=== PATIENT | female | born 1950 | race African-American/Black ===

== ENCOUNTER → 2024-05-05 14:33 | Outpatient (REF) | payer MEDICARE, BC, SELFPAY ==
--- OUTSIDE RECORDS SUMMARY | 2024-05-05 16:28 | XMS_ITS | Referral Summary ---
Author Organization [facility] [place] Address [address] [place] [id number] Care Team Providers Care Colleter Name Role Phone Anderson Alvarez MD Primary Care Provider [phone] Encounters Date Type Department Care Team Description 04/07/2024 10:00 AM DRESSAGE JUDGE Lab [facility] [address] [place] [id number] Type 2 diabetes mellitus with hyperglycemia, with long-term current use of insulin (HCC); Acquired hypothyroidism; Essential hypertension 04/06/2024 Orders Only [facility] [address] [place] [id number] Anderson Alvarez MD 04/06/2024 3:20 PM DRESSAGE JUDGE - 04/06/2024 11:59 PM DRESSAGE JUDGE Hospital Encounter [facility] Medical Office [address]ld[address] OP Lab [address] [place] [id number] Type 2 diabetes mellitus with hyperglycemia, with long-term current use of insulin (HCC) Discharge Disposition: Discharge to home or self care 04/06/2024 2:45 PM DRESSAGE JUDGE Office Visit [facility] at [address] [place] [address] Anderson Alvarez MD Type 2 diabetes mellitus with hyperglycemia, with long-term current use of insulin (HCC) (Primary Dx); Essential hypertension; Mixed hyperlipidemia; Acquired hypothyroidism from Last 3 Months Allergies Active Allergy Reactions Criticality Noted Date Comments Carvedilol Unknown 04/17/2023 Diphenhydramine Hives,Urticaria Medium 07/21/2021 Enalapril Unknown 04/17/2023 Medications insulin lispro (HumaLOG, ADMELOG) 100 unit/mL pen for injection Inject 5 Units under the skin 3 (three) times a day with meals 4.5 mL 2 Active Additional Information Patient not taking.Reported on 04/06/2024 cloNIDine (CATAPRES) 0.1 mg tablet Take 1 tablet (0.1 mg total) by mouth 3 (three) times a day Active metoprolol XL (TOPROL-XL) 50 mg extended release tablet Take 1 tablet (50 mg total) by mouth daily Active levothyroxine (SYNTHROID) 75 mcg tablet Take 1 tablet (75 mcg total) by mouth daily Active atorvastatin (LIPITOR) 80 mg tablet Take 1 tablet (80 mg total) by mouth daily Active vitamin B complex capsule Take 1 capsule by mouth daily Active losartan (COZAAR) 100 mg tablet Take 1 tablet (100 mg total) by mouth daily Active insulin glargine (LANTUS) 100 unit/mL (3 mL) pen for injection Inject 30 Units under the skin nightly Active amLODIPine (NORVASC) 10 mg tablet Take 1 tablet (10 mg total) by mouth daily 3 Active aspirin 81 mg chewable tablet Take 1 tablet (81 mg total) by mouth daily Active cholecalciferol (VITAMIN D-3) 94552 unit capsule Take 1 capsule (10,000 Units total) by mouth once a week Active nystatin ointment Apply topically 2 (two) times a day 2 Active HumaLOG 200 unit/mL (3 mL) pen for injection 3 Active ibuprofen (ADVIL,MOTRIN) 600 mg tablet Take 1 tablet (600 mg total) by mouth every 6 (six) hours as needed for pain 20 tablet 4 Active Jardiance 25 mg tablet TAKE 1 TABLET BY MOUTH DAILY 90 tablet 3 4 Active insulin syringe-needle U-100 (BD Insulin Syringe Ultra-Fine) 0.3 mL 31 gauge x 5/16 syringe Active Active Problems Problem Noted Date Diagnosed Date Hypothyroidism 03/05/2018 Assessment & Plan (01/16/2023 10:49 AM DRESSAGE JUDGE): Check labs. On levothyroxine 75 mcg daily. Electrocardiogram abnormal 03/04/2018 Essential hypertension 02/13/2018 Assessment & Plan (01/16/2023 10:49 AM DRESSAGE JUDGE): Has white coat hypertension. BP has been labile at home but for most part <140/90. Continue current dose of metoprolol XL, losartan, clonidine, and norvasc. Hyperlipidemia 02/13/2018 Type 2 diabetes mellitus 01/24/2003 Overview (04/17/2023): HgbA1C 9.5 Assessment & Plan (01/16/2023 10:48 AM DRESSAGE JUDGE): Update labs. On lantus 30 units nightly with humalog sliding scale. Immunizations Immunization Administration Dates Next Due Influenza, Trivalent, High D ose, Split, Preservative Free, Intramuscular 11/10/2021,12/09/2020 Influenza, Unspecified 01/16/2023(Deferr ed: Patient Refused),12/14/2020(Deferred: Patient Refused) Pneumococcal Conjugate Pcv20 11/10/2021 Tdap 04/15/2023(Deferred: Patient Refused - states does not want it) Social History Tobacco Use Types Packs/Day Years Used Date Smoking Tobacco: Never Smokeless Tobacco: Never Tobacco Cessation:Counseling Given: Not Answered AUDIT-C Answer Date Recorded Q1: How often do you have a drink containing alcohol? Never 04/06/2024 Q2: How many drinks containi ng alcohol do you have on a typical day when you are drinking? Patient does not drink Frequency of Binge Drinking Not on file 03/28 PHQ-2 Answer Date Recorded PHQ-2 Total Score (If total score is 3 or more points, staff should administer the PHQ-9) 0 10/02/2023 Personal Safety Answer Date Recorded Have you ever been in or are you currently in a harmful physical or emotional relationship or is someone making you feel afraid or unsafe? Denies 04/15/2023 Comments No Sex and Gender Information Value Date Recorded Sex Assigned at Not on file Legal Sex Female 10:00 PM DRESSAGE JUDGE Gender Identity Not on file Sexual Orientation Not on file Last Filed Vital Signs Vital Sign Reading Time Taken Comments Blood Pressure 160/90 04/06/2024 3:53 PM DRESSAGE JUDGE Pulse 64 04/06/2024 3:02 PM DRESSAGE JUDGE Temperature 37.1 C (98.7 F) 04/06/2024 3:02 PM DRESSAGE JUDGE Respiratory Rate 18 04/06/2024 3:02 PM DRESSAGE JUDGE Oxygen Saturation 97% 04/06/2024 3:02 PM DRESSAGE JUDGE Inhaled Oxygen Concentration - - Weight 65.7 kg (144 lb 12.8 oz) 04/06/2024 3:02 PM DRESSAGE JUDGE Height 162.6 cm (5' 4 ) 04/06/2024 3:02 PM DRESSAGE JUDGE Body Mass Index 24.85 04/06/2024 3:02 PM DRESSAGE JUDGE Plan of Treatment Not on file Procedures Procedure Name Priority Date/Time Associated Diagnosis Comments T3, FREE Routine 04/07/2024 10:10 AM DRESSAGE JUDGE EGFR Routine 04/07/2024 10:10 AM DRESSAGE JUDGE Type 2 diabetes mellitus with hyperglycemia, with long-term current use of insulin ([facility]) Essential hypertension T4, FREE Routine 04/07/2024 10:10 AM DRESSAGE JUDGE Acquired hypothyroidism DIFFERENTIAL AUTO Routine 04/07/2024 10:10 AM DRESSAGE JUDGE Essential hypertension CBC WITH AUTO DIFFERENTIAL Routine 04/07/2024 10:10 AM DRESSAGE JUDGE Essential hypertension COMPREHENSIVE METABOLIC PANEL Routine 04/07/2024 10:10 AM DRESSAGE JUDGE Type 2 diabetes mellitus with hyperglycemia, with long-term current use of insulin ([facility]) Essential hypertension LIPID PANEL Routine 04/07/2024 10:10 AM DRESSAGE JUDGE Essential hypertension THYROID FUNCTION CASCADE Routine 04/07/2024 10:10 AM DRESSAGE JUDGE Acquired hypothyroidism HEMOGLOBIN A1C Routine 04/07/2024 10:10 AM DRESSAGE JUDGE Type 2 diabetes mellitus with hyperglycemia, with long-term current use of insulin ([facility]) ALBUMIN CREATININE RATIO, URINE Routine 04/06/2024 3:24 PM DRESSAGE JUDGE Type 2 diabetes mellitus with hyperglycemia, with long-term current use of insulin (HCC) SCREENING MAMMOGRAM BILATERAL W JERRY Schedule Routine, Read Routine (OP Routine) 01/30/2024 2:10 PM DRESSAGE JUDGE Screening mammogram, encounter for DEXA AXIAL SKELETON BONE DENSITY 1 OR MORE SITES Schedule Routine, Read Routine (OP Routine) 10/16/2023 7:32 AM CDT Post-menopausal STOOL DNA COLOGUARD Routine 11/03/2021 11:48 AM CDT Screening for colon cancer from Last 3 Months or Most Recently Relevant to Health Maintenance Results * eGFR (04/07/2024 10:10 AM DRESSAGE JUDGE) eGFR >90 >=60 mL/min/1. 73 m2 Comment: Interpretive Data Reference Interval Normal >/= 90 mL/min/1.73m2 Mildly decreased* 60 - 89 mL/min/1.73m2 Mildly to moderately decreased 45 - 59 mL/min/1.73m2 Moderately to severely decreased 30 - 44 mL/min/1.73m2 Severely decreased 15 - 29 mL/min/1.73m2 Kidney Failure < 15 mL/min/1.73m2 *Relative to young adult level Estimated glomerular filtration rate is determined by the 2020 CKD-EPI equation recommended by the National Kidney Foundation (A Unifying Approach to GFR Estimation: Recommendations of the NKF-ASK Task Force on Reassessing the Inclusion of Race in Diagnosing Kidney Disease, JASN 2020). The CKD-EPI equation should not be used for patients with unstable renal function and has not been validated in children and those over 70. Current interpretive data was last reviewed 2020. Blood 04/07/2024 10:1 0 AM DRESSAGE JUDGE 04/07/2024 11:06 AM DRESSAGE JUDGE us Anderson Alvarez MD LAB BLOOD ORDERABLES Final Re sult [facility] [address] [facility] Department [place] [address] * Differential, auto (04/07/2024 10:10 AM DRESSAGE JUDGE) Pathologist [facility] Neutrophil abs 3.8 1.5 - 6.5 K/cumm Imm gran abs 0.0 0.0 - 0.1 K/cumm [facility] Lymphocyte abs 1.7 0.8 - 3.3 K/cumm [facility] Monocyte abs 0.5 0.2 - 0.8 K/cumm [facility] Eosinophil abs 0.1 0.0 - 0.5 K/cumm [facility] Basophil abs 0.0 0.0 - 0.1 K/cumm [facility] Neutrophil pct 63.1 % [facility] Comment: Interpretive Data Percent cell count reference ranges are not reported, since discordance with absolute values may lead to misinterpretation of CBC data. Current Interpretive Data was last revised on 2017. Imm gran pct 0.2 % [facility] Comment: Interpretive Data Percent cell count reference ranges are not reported, since discordance with absolute values may lead to misinterpretation of CBC data. Current Interpretive Data was last revised on 2017. Lymphocyte pct 27.7 % [facility] Comment: Interpretive Data Percent cell count reference ranges are not reported, since discordance with absolute values may lead to misinterpretation of CBC data. Current Interpretive Data was last revised on 2017. Monocyte pct 7.4 % [facility] Comment: Interpretive Data Percent cell count reference ranges are not reported, since discordance with absolute values may lead to misinterpretation of CBC data. Current Interpretive Data was last revised on 2017. Eosinophil pct 1.3 % [facility] Comment: Interpretive Data Percent cell count reference ranges are not reported, since discordance with absolute values may lead to misinterpretation of CBC data. Current Interpretive Data was last revised on 2017. Basophil pct 0.3 % [facility] Comment: Interpretive Data Percent cell count reference ranges are not reported, since discordance with absolute values may lead to misinterpretation of CBC data. Current Interpretive Data was last revised on 2017. Blood 04/07/2024 10:1 0 AM DRESSAGE JUDGE 04/07/2024 11:06 AM DRESSAGE JUDGE Anderson Alvarez MD LAB BLOOD ORDERABLES Final Re sult Performing Organization Address City/[facility] Co de Phone Number [address] [place] [address] * (ABNORMAL) Thyroid Function [place] (04/07/2024 10:10 AM DRESSAGE JUDGE) TSH 0.07(L) 0.30 - 4.20 mcIUnit/mL Blood 04/07/2024 10:1 0 AM DRESSAGE JUDGE 04/07/2024 11:06 AM DRESSAGE JUDGE Anderson Alvarez MD LAB BLOOD ORDERABLES Final Re sult Performing Organization Address [facility] de Phone Number [address] [address] * CBC with auto differential (04/07/2024 10:10 AM DRESSAGE JUDGE) [facility] WBC 6.1 3.8 - 9.9 K/cumm Hgb 14.4 11.9 - 15.5 g/dL [facility] Hct 44.3 35.6 - 45.5 % [facility] Plt 321 150 - 400 K/cumm [facility] MPV 11.7 9.1 - 12.3 fL [facility] RBC 4.79 3.90 - 5.20 M/cumm [facility] MCV 92.5 81.3 - 96.4 fL [facility] MCH 30.1 27.1 - 33.3 pg [facility] MCHC 32.5 32.3 - 35.7 g/dL [facility] RDW CV 13.3 11.1 - 14.9 % [facility] RDW SD 44.7 35.7 - 48.1 fL [facility] NRBC abs 0.00 0.00 - 0.01 K/cumm [facility] Blood 04/07/2024 10:1 0 AM DRESSAGE JUDGE 04/07/2024 11:06 AM DRESSAGE JUDGE Anderson Alvarez MD LAB BLOOD ORDERABLES Final Re sult Performing Organization Address [facility] de Phone Number [address] [address] * T3, free (04/07/2024 10:10 AM DRESSAGE JUDGE) Free T3 2.2 2.0 - 4.4 pg/mL Blood 04/07/2024 10:1 0 AM DRESSAGE JUDGE 04/07/2024 11:06 AM DRESSAGE JUDGE Narrative DM - 04/07/2024 1:00 PM DRESSAGE JUDGE This test was reflexed from a Free T4 result. us Anderson Alvarez MD LAB BLOOD ORDERABLES Final Re sult Performing Organization Address [facility] de Phone Number [address] [address] * T4, free (04/07/2024 10:10 AM DRESSAGE JUDGE) Pathologist [facility] Free T4 1.69 0.90 - 1.70 ng/dL Blood 04/07/2024 10:1 0 AM DRESSAGE JUDGE 04/07/2024 11:06 AM DRESSAGE JUDGE Narrative DM - 04/07/2024 12:30 PM DRESSAGE JUDGE This test was reflexed from a TSH result. Anderson Alvarez MD LAB BLOOD ORDERABLES Final Re sult Performing Organization Address [facility] de Phone Number [place] [phone] [facility] [place] [address] * (ABNORMAL) Hemoglobin A1c (04/07/2024 10:10 AM DRESSAGE JUDGE) [facility] Hgb A1C 10.5(H) 4.0 - 5.6 % Estimated Average Glucose 255 mg/dL DM Comment: The ADA recommends reporting an estimated Average Glucose (eAG) with all Hemoglobin A1c results using the equation derived from a study of 507 normal and diabetic adults. Minority populations were underrepresented and children were not included. (Diabetes Care 31:5622-4067, 2008). The eAG is not equivalent to a fasting glucose. Blood 04/07/2024 10:1 0 AM DRESSAGE JUDGE 04/07/2024 11:06 AM DRESSAGE JUDGE us Anderson Alvarez MD LAB BLOOD ORDERABLES Final Re sult DM [address] [facility] Department [place] [address] * (ABNORMAL) Lipid panel (04/07/2024 10:10 AM DRESSAGE JUDGE) Cholesterol 129 30 - 199 mg/dL Comment: Interpretive Data Ages < or = 19 years Acceptable: <170 mg/dL Borderline high: 170-199 mg/dL High: >or= 200 mg/dL Ages > or = 20 years Desirable: <200 mg/dL Borderline high: 200-239 mg/dL High: >or= 240 mg/dL Literature References: 1. Expert Panel on Integrated Guidelines for Cardiovascular Health and Risk Reduction in Children and Adolescents. Pediatrics 2011;128:S213 2. NCEP Expert Panel. Circulation 2004;110:227 Current Interpretive Data was last revised on 2017. Triglycerides 76 <=149 mg/dL DM Comment: Interpretive Data Ages < or = 9 years Acceptable: <75 mg/dL Borderline high: 75-99 mg/dL High: >or= 100 mg/dL Ages 10 to 20 years Acceptable: <90 mg/dL Borderline high: 90-129 mg/dL High: >or= 130 mg/dL Ages > or = 20 years Desirable: <150 mg/dL Borderline high: 150-199 mg/dL High: 200-499 mg/dL Very high: >or= 499 mg/dL Literature References: 1. Expert Panel on Integrated Guidelines for Cardiovascular Health and Risk Reduction in Children and Adolescents. Pediatrics 2011;128:S213 2. NCEP Expert Panel. Circulation 2004;110:227 Current Interpretive Data was last revised on 2017. HDL 31(L) >=40 mg/dL DM Comment: Interpretive Data Ages < or = 19 years Acceptable: >45 mg/dL Borderline low: 40-45 mg/dL Low: <40 mg/dL Ages > or = 20 years Desirable: >or= 60 mg/dL Low: <40 mg/dL Literature References: 1. Expert Panel on Integrated Guidelines for Cardiovascular Health and Risk Reduction in Children and Adolescents. Pediatrics 2011;128:S213 2. NCEP Expert Panel. Circulation 2004;110:227 Current Interpretive Data was last revised on 2017. LDL, calculated 83 <=129 mg/dL DM MERA Comment: Interpretive Data Ages < or = 19 years Acceptable: <110 mg/dL Borderline high: 110-129 mg/dL High: >or= 130 mg/dL Ages > or = 20 years Optimal: <100 mg/dL Near optimal: 100-129 mg/dL Borderline high: 130-159 mg/dL High: >160 mg/dL Calculated using the Hay LDL-C estimating equation. This equation was implemented on 2023. Prior to this date LDL-C was estimated using the Friedewald equation. Literature References: 1. Expert Panel on Integrated Guidelines for Cardiovascular Health and Risk Reduction in Children and Adolescents. Pediatrics 2011;128:S213 2. NCEP Expert Panel. Circulation 2004;110:227 3. Hay Pineda et al. TRI Cardiol. 2019June 25;5(5):540-548. doi: 10.1001/jamacardio.2020.0013 Current Interpretive Data was last revised on 2023. Non-HDL Cholesterol 98 mg/dL DM MERA Comment: Interpretive Data Ages < or = 19 years Acceptable: <120 mg/dL Borderline high: 120-144 mg/dL High: >145 mg/dL Ages > or = 20 years When triglycerides are >200 mg/dL, Non-HDL cholesterol is a secondary target of therapy with treatment goals that are 30 mg/dL greater than the LDL cholesterol target. Literature References: 1. Expert Panel on Integrated Guidelines for Cardiovascular Health and Risk Reduction in Children and Adolescents. Pediatrics 2011;128:S213 2. NCEP Expert Panel. Circulation 2004;110:227 Current Interpretive Data was last revised on 2017. Chol/HDL ratio 4 DM [facility]A Blood 04/07/2024 10:1 0 AM DRESSAGE JUDGE 04/07/2024 11:06 AM DRESSAGE JUDGE Narrative DM MERA - 04/07/2024 11:53 AM DRESSAGE JUDGE Has the patient been fasting for 8 hours or more?->Yes us Anderson Alvarez MD LAB BLOOD ORDERABLES Final Re sult Performing Organization Address [facility]/ZIP Co wy Phone Number DM [address] [facility] Department [place] [address] * (ABNORMAL) Comprehensive metabolic panel (04/07/2024 10:10 AM DRESSAGE JUDGE) Sodium 142 135 - 145 mmol/L Potassium, pl 3.4 3.3 - 4.9 mmol/L [facility] Chloride 107 97 - 110 mmol/L [facility] CO2 25 22 - 32 mmol/L [facility] Anion gap 10 2 - 15 mmol/L [facility] BUN 18 6 - 25 mg/dL [facility] Creatinine 0.57(L) 0.60 - 1.10 mg/dL [facility] Glucose 133 70 - 199 mg/dL [facility] Comment: Interpretive Data Fasting glucose >/= 126 mg/dl is diagnostic for diabetes. Fasting is defined as no caloric intake for at least 8 hours. Fasting glucose between 100 mg/dl to 125 mg/dl is diagnostic of prediabetes. In a patient with classic symptoms of hyperglycemia or hyperglycemic crisis, a random glucose >/= 200 mg/dl is diagnostic for diabetes. In the absence of unequivocal hyperglycemia, results should be confirmed by repeat testing. The classification and Diagnosis of Diabetes Diabetes Care 2021; 46: S19-S40. Current interpretive data was last revised 2022. Calcium 10.7(H) 8.5 - 10.3 mg/dL [facility] Bilirubin, total 0.7 0.1 - 1.2 mg/dL [facility] Protein, pl 6.8 6.5 - 8.5 g/dL [facility] Albumin 4.2 3.5 - 5.0 g/dL [facility] Alk phos 97 40 - 130 Units/L [facility] ALT 30 7 - 45 Units/L [facility] AST 32 10 - 45 Units/L [facility] Blood 04/07/2024 10:1 0 AM DRESSAGE JUDGE 04/07/2024 11:06 AM DRESSAGE JUDGE Anderson Alvarez MD LAB BLOOD ORDERABLES Final Re sult Performing Organization Address [facility]/ZIP Co de Phone Number DM [address] [facility] [place] [address] * (ABNORMAL) Albumin Creatinine Ratio, Urine (04/06/2024 3:24 PM DRESSAGE JUDGE) Albumin Ur 24.9 mg/L Comment: Interpretive Data No reference range established. Current interpretive data was last revised 2018. Creatinine Ur 56.4 mg/dL [facility] Comment: Interpretive Data No reference range established. Current interpretive data was last revised 2018. Albumin Creatinine Ratio, Ur 44(H) 1 - 29 mg/g [facility] Urine 04/06/2024 3:24 PM DRESSAGE JUDGE 04/06/2024 5:06 PM DRESSAGE JUDGE us Anderson Alvarez MD LAB URINE ORDERABLES Final Re sult Performing Organization Address [facility] Co de Phone Number DM [facility] [place] [address] * Screening Mammogram Bilateral W Jerry (01/30/2024 2:10 PM DRESSAGE JUDGE) Anatomical Region Laterality Modality Breast Bilateral Mammography Impressions 01/30/2024 3:20 PM DRESSAGE JUDGE BI-RADS ATLAS category (overall): 1 - Negative There is no mammographic evidence of malignancy. A 1 year screening mammogram is recommended. The patient has been or will be contacted. We recommend annual screening mammography for women at average risk of breast cancer beginning at age 40, based on guidelines of the [employer] [employer] (ACR Practice Parameter for the Performance of Screening and Diagnostic Mammography) and [employer] [employer]. For women with and elevated risk of breast cancer, please refer to the ACR Practice Parameter for specific screening recommendations. The patient will be entered into a reminder system with a target due date of 1 year for her next screening exam. Narrative 01/30/2024 3:20 PM DRESSAGE JUDGE Screening Mammogram Bilateral W Jerry: 01/30/24 The study was acquired using full field digital technology and interpreted from soft copy. 2D digital mammographic views, as well as 3D digital tomosynthesis were performed in the CC and MLO projections. CLINICAL: Screening mammogram, encounter for. No relevant medical history has been documented for this patient. History of breast cancer in Neg Hx. COMPARISONS: 01/07/2023 Screening Mammogram Bilateral W Jerry 11/20/2021 SCREENING MAMMOGRAM BILATERAL W JERRY BREAST TISSUE: There are scattered areas of fibroglandular density. FINDINGS: No suspicious masses, suspicious calcifications, or other suspicious findings are seen within either breast. There has been no suspicious change. us Anderson Alvarez MD IMG MAMMO PROCEDURES Final Re sult * Dexa Axial Skeleton Bone Density 1 Or 2 Site (10/16/2023 7:32 AM CDT) Anatomical Region Laterality Modality Body N/A Mammography 10/16/2023 4:52 PM CDT Narrative 10/16/2023 4:55 PM CDT EXAM DESCRIPTION: DEXA AXIAL SKELETON BONE DENSITY 1 OR MORE SITES REASON FOR STUDY: 73 y/o year old F with given history of: osteoporosis screen Postmenopausal Blocker [employer]/Model: [employer] A (S/N [id number]) CLINICAL INFORMATION: Current height: 63 inches Maximum height: 63 inches Weight: 152 pounds Risk factors: Postmenopausal, adult fracture COMPARISON: 03/23/2009 Dissimilar scan types or analysis methods precludes assessment for calculating a significant change. FINDINGS: AP LUMBAR SPINE L1-L4: Total BMD is 1.128 g/cm2 T-score is -0.2 LEFT HIP: Total BMD is 0.916 g/cm2 T-score is -0.7 Femoral neck BMD is 0.669 g/cm2 T-score is -2.0 FRAX: 10 year risk for a major osteoporotic fracture is 8.0 %, 10 year risk for a hip fracture is 1.5 % IMPRESSION: Low Bone Mass. REFERENCE: Bone mineral density: T-Score: Normal (T-score above or = -1.0) Low bone mass (T-score between -1.0 and -2.5) replaces the previously used term osteopenia Osteoporosis (T-score = or below -2.5) Z-Score: Within the expected range for age (Z-score above -2.0) Below the expected range for age (Z-score is -2.0 or below) Please see below follow up recommendations. Medical evaluation for secondary causes of low bone mineral density may be appropriate. FRAX is a World Health Organization validated fracture risk assessment tool that calculates a person's 10 year probability of a major osteoporosis related fracture and hip fracture. According to the National Osteoporosis Foundation guidelines, postmenopausal women and men age 50 or older with low bone mass and a 10 year probability of a major osteoporosis related fracture = or greater than 20% or a 10 year probability of a hip fracture = or greater than 3% should be considered for pharmacological treatment for the prevention of osteoporosis. For further information, including treatment recommendations, please refer to the 2019 ISCD Official Positions (http://www.iscd.org) and the NOF's Clinician's Guide to Prevention and Treatment of Osteoporosis (http://www.nof.org/professionals/clinical-guidelines) THIS IS AN ELECTRONICALLY VERIFIED FINAL REPORT 10/16/2023 4:55 PM - Electronically signed by Kaiden Dorantes M.D. MF: ILIA Report ID: [id number] Reading Location: [place] [address] Procedure Note Kaiden Dorantes MD - 10/16/2023 EXAM DESCRIPTION: DEXA AXIAL SKELETON BONE DENSITY 1 OR MORE SITES REASON FOR STUDY: 73 y/o year old F with given history of:osteoporosis screen Postmenopausal Blocker [employer]/Model: [employer] A (S/N [id number]) CLINICAL INFORMATION: Current height: 63 inches Maximum height: 63 inches Weight: 152 pounds Risk factors: Postmenopausal, adult fracture COMPARISON: 03/23/2009 Dissimilar scan types or analysis methods precludes assessment for calculating a significant change. FINDINGS: AP LUMBAR SPINE L1-L4: Total BMD is 1.128 g/cm2 T-score is -0.2 LEFT HIP: Total BMD is 0.916 g/cm2 T-score is -0.7 Femoral neck BMD is 0.669 g/cm2 T-score is -2.0 FRAX: 10 year risk for a major osteoporotic fracture is 8.0 %, 10 year risk fora hip fracture is 1.5 % IMPRESSION: Low Bone Mass. REFERENCE: Bone mineral density: T-Score: Normal (T-score above or = -1.0) Low bone mass (T-score between -1.0 and -2.5) replaces thepreviously used term osteopenia Osteoporosis (T-score = or below -2.5) Z-Score: Within the expected range for age (Z-score above -2.0) Below the expected range for age (Z-score is -2.0 or below) Please see below follow up recommendations. Medical evaluation forsecondary causes of low bone mineral density may be appropriate. FRAX is a World Health Organization validated fracture risk assessmenttool that calculates a person's 10 year probability of a major osteoporosisrelated fracture and hip fracture. According to the National OsteoporosisFoundation guidelines, postmenopausal women and men age 50 or older with low bonemass and a 10 year probability of a major osteoporosis related fracture = or greater than 20% or a 10 year probability of a hip fracture = or greaterthan 3% should be considered for pharmacological treatment for the preventionof osteoporosis. For further information, including treatment recommendations, please referto the 2019 ISCD Official Positions (http://www.iscd.org) and the NOF's Clinician's Guide to Prevention and Treatment of Osteoporosis (http://www.nof.org/professionals/clinical-guidelines) THIS IS AN ELECTRONICALLY VERIFIED FINAL REPORT 10/16/2023 4:55 PM - Electronically signed by Kaiden Dorantes M.D. MF: ILIA Report ID: [id number] Reading Location: [place] [address] Anderson Alvarez MD [facility] [place] [facility] PROCEDURES Final Resu lt * Stool DNA - Cologuard (11/03/2021 11:48 AM CDT) Pathologist [facility] Stool DNA - Cologuard Negative Negative [employer] (CLIA #:[id number]) Comment: NEGATIVE TEST RESULT. A negative Cologuard result indicates a low likelihood that a colorectal cancer (CRC) or advanced adenoma (adenomatous polyps with more advanced pre-malignant features) is present. The chance that a person with a negative Cologuard test has a colorectal cancer is less than 1 in 1500 (negative predictive value >99.9%) or has an advanced adenoma is less than 5.3% (negative predictive value 94.7%). These data are based on a prospective cross-sectional study of 10,000 individuals at average risk for colorectal cancer who were screened with both Cologuard and colonoscopy. (Lincoln Álvarez al, N Engl J Med 2014;370(14):7116-2612) The normal value (reference range) for this assay is negative. COLOGUARD RE-SCREENING RECOMMENDATION: Periodic colorectal cancer screening is an important part of preventive healthcare for asymptomatic individuals at average risk for colorectal cancer. Following a negative Cologuard result, the [place] [employer] and U.S. Multi-Society Task Force screening guidelines recommend a Cologuard re-screening interval of 3 years. References: [place] [employer] Guideline for Colorectal Cancer Screening: https://www.cancer.org/cancer/jzbfw-seertg-dnlzny/wpclcbqik-mmycyuuoa-tmxlizg/ac s-rec ommendations.html.; Prakash DK, Sathya VELASCO, Shavonne GloverK, Colorectal Cancer Screening: Recommendations for Physicians and Patients from the U.S. Multi-Society Task Force on Colorectal Cancer Screening , Am J Gastroenterology 2017; 112:0442-3001. TEST DESCRIPTION: Composite algorithmic analysis of stool DNA-biomarkers with hemoglobin immunoassay. Quantitative values of individual biomarkers are not reportable and are not associated with individual biomarker result reference ranges. Cologuard is intended for colorectal cancer screening of adults of either sex, 45 years or older, who are at average-risk for colorectal cancer (CRC). Cologuard has been approved for use by the U.S. FDA. The performance of Cologuard was established in a cross sectional study of average-risk adults aged 50-84. Cologuard performance in patients ages 45 to 49 years was estimated by sub-group analysis of near-age groups. Colonoscopies performed for a positive result may find as the most clinically significant lesion: colorectal cancer [4.0%], advanced adenoma (including sessile serrated polyps greater than or equal to 1cm diameter) [20%] or non- advanced adenoma [31%]; or no colorectal neoplasia [45%]. These estimates are derived from a prospective cross-sectional screening study of 10,000 individuals at average risk for colorectal cancer who were screened with both Cologuard and colonoscopy. (Lincoln Sweeney et al, N Engl J Med 2014;370(14):2892-2183.) Cologuard may produce a false negative or false positive result (no colorectal cancer or precancerous polyp present at colonoscopy follow up). A negative Cologuard test result does not guarantee the absence of CRC or advanced adenoma (pre-cancer). The current Cologuard screening interval is every 3 years. ([place] [employer] and U.S. Multi-Society Task Force). Cologuard performance data in a 10,000 patient pivotal study using colonoscopy as the reference method can be accessed at the following location: [email or web address]. Additional description of the Cologuard test process, warnings and precautions can be found at [email or web address]. Stool 11/03/2021 11:4 8 AM CDT 11/04/2021 6:26 PM CDT Anderson Alvarez MD LAB BODY FLUIDS AND STOOLS OR DERABLES Final Result [facility] (CLIA #:[id number]) [place] [address] from Last 3 Months or Most Recently Relevant to Health Maintenance Insurance MEDICARE [employer] [facility] Address: [address] [place] [address] [place] [employer] [facility] Address: [address] [place] [address] MEDICARE Care Teams Colleter Relationship Specialty Start Date End Date Anderson Alvarez MD [address] [place] [address] PCP - General Family Medicine 08/30/21
--- OUTSIDE RECORDS SUMMARY | 2024-05-05 16:28 | XMS_ITS | Clinical Summary ---
Author Organization [facility] [place] Address [address] [place] [address] Care Team Providers Care Bridge Construction Inspector Name Role Phone Anderson Alvarez MD Primary Care Provider [phone] Allergies Active Allergy Reactions Criticality Noted Date Comments Carvedilol Unknown 04/17/2023 Diphenhydramine Hives,Urticaria Medium 07/21/2021 Enalapril Unknown 04/17/2023 Medications insulin lispro (HumaLOG, ADMELOG) 100 unit/mL pen for injection Inject 5 Units under the skin 3 (three) times a day with meals 4.5 mL Active Additional Information Patient not taking.Reported on [...] by mouth daily Active cholecalciferol (VITAMIN D-3) 23106 unit capsule Take 1 capsule (10,000 Units [...] 03/05/2018 Assessment & Plan (01/16/2023 10:49 AM PHP SOFTWARE ENGINEER): Check labs. On levothyroxine 75 mcg daily. Electrocardiogram abnormal 03/04/2018 Essential hypertension 02/13/2018 Assessment & Plan (01/16/2023 10:49 AM PHP SOFTWARE ENGINEER): Has white coat hypertension. BP has been labile at home but for most part <140/90. Continue current dose of metoprolol XL, losartan, clonidine, and norvasc. Hyperlipidemia 02/13/2018 Type 2 diabetes mellitus 01/24/2003 Overview (04/17/2023): HgbA1C 9.5 Assessment & Plan (01/16/2023 10:48 AM PHP SOFTWARE ENGINEER): Update labs. On lantus 30 units nightly with humalog sliding scale. Encounters Date Type Department Care Team Description 04/07/2024 10:00 AM PHP SOFTWARE ENGINEER Lab [facility] Lab [address] [place] [address] Type 2 diabetes mellitus with hyperglycemia, with long-term current use of insulin (HCC); Acquired hypothyroidism; Essential hypertension 04/06/2024 3:20 PM PHP SOFTWARE ENGINEER - 04/06/2024 11:59 PM PHP SOFTWARE ENGINEER Hospital Encounter [facility] Medical Office Bldg 3 OP Lab [address] [place] [address] Type 2 diabetes mellitus with hyperglycemia, with long-term current use of insulin (HCC) Discharge Disposition: Discharge to home or self care 04/06/2024 2:45 PM PHP SOFTWARE ENGINEER Office Visit [facility] [address] [place] [phone] Anderson Alvarez MD Type 2 diabetes mellitus with hyperglycemia, with long-term current use of insulin (HCC) (Primary Dx); Essential hypertension; Mixed hyperlipidemia; Acquired hypothyroidism 04/06/2024 Orders Only [facility] Lab [address] [place] [address] Anderson Alvarez MD from Last 3 Months Immunizations Immunization Administration Dates Next Due Influenza, Trivalent, High D ose, Split, Preservative Free, Intramuscular 11/10/2021,12/09/2020 Influenza, Unspecified 01/16/2023(Deferr ed: Patient Refused),12/14/2020(Deferred: Patient Refused) Pneumococcal Conjugate Pcv20 11/10/2021 Tdap 04/15/2023(Deferred: Patient Refused - states does not want it) Surgical History Surgery Date Site/Laterality Comments CATARACT EXTRACTION Bilateral HYSTERECTOMY OOPHORECTOMY one ovary removed Medical History Medical History Date Comments Diabetes mellitus (HCC) Hyperlipidemia Hypertension Cataract Family History Medical History Relation Name Comments Cancer Father Diabetes Mother Breast cancer Neg Hx Colon cancer Neg Hx Relation Name Status Comments Father Mother Social History Tobacco Use Types Packs/Day Years [...] on file Legal Sex Female 10:00 PM PHP SOFTWARE ENGINEER Gender Identity Not on file Sexual Orientation Not on file Obstetrics History Para Term AB IAB SAB Ectopic Multiple Livin g Live Births 4 4 4 Date Outcome GA Total Labor Labor/2nd/3rd Weight Sex Type Anes PTL Glenis A1 A5 Name Clin Term Term Term Term Last Filed Vital Signs Vital Sign Reading Time Taken Comments Blood Pressure 160/90 04/06/2024 3:53 PM PHP SOFTWARE ENGINEER Pulse 64 04/06/2024 3:02 PM PHP SOFTWARE ENGINEER Temperature 37.1 C (98.7 F) 04/06/2024 3:02 PM PHP SOFTWARE ENGINEER Respiratory Rate 18 04/06/2024 3:02 PM PHP SOFTWARE ENGINEER Oxygen Saturation 97% 04/06/2024 3:02 PM PHP SOFTWARE ENGINEER Inhaled Oxygen Concentration - - Weight 65.7 kg (144 lb 12.8 oz) 04/06/2024 3:02 PM PHP SOFTWARE ENGINEER Height 162.6 cm (5' 4 ) 04/06/2024 3:02 PM PHP SOFTWARE ENGINEER Body Mass Index 24.85 04/06/2024 3:02 PM PHP SOFTWARE ENGINEER Plan of Treatment Health Maintenance Due Date Last Done Comments Hepatitis C Screening 1950 Dilated Eye Exam 1950 Foot Exam 1950 DTaP/Tdap/Td Vaccine (1 - Tdap) 1960 Hepatitis B Screening 1967 Zoster Vaccine (1 of 2) 1999 Influenza Vaccine (#1) 2023 11/10/2021, 2020 Depression Screening 10/01/2024 10/02/2023, 01/17/20 23 Fall Risk Assessment 10/01/2024 10/02/2023, 01/17/20 23 Well Visit 65+ 10/01/2024 10/02/2023 Hemoglobin A1C 10/05/2024 04/07/2024, 12/27, 08/31/2019, Additional history exists Colon Cancer Screening-DNA Stool 11/03/2024 11/04/19 22 Albumin Creatinine Ratio, Urine 04/06/2025 5, 01/16/2023 Lipid Panel 04/07/2025 04/07/2024, 12/27, 08/31/2019, Additional history exists eGFR 04/07/2025 04/07/2024, 12/27, 04/06/2021 Osteoporosis Screening-Bone Density Scan 10/15/2025 10/16/2023 Colon Cancer Screening-FIT Discontinued 11/03/2021 Pneumococcal vaccine 65+ Completed 11/10/2021 Breast Cancer Screening-Mammogram Discontinued 01/30/2024, 01/07/2023, 11/20/2021, Additional history exists Procedures Procedure Name Priority Date/Time Associated Diagnosis Comments T3, FREE Routine 04/07/2024 10:10 AM PHP SOFTWARE ENGINEER EGFR Routine 04/07/2024 10:10 AM PHP SOFTWARE ENGINEER Type 2 diabetes mellitus with hyperglycemia, with long-term current use of insulin (HCC) Essential hypertension T4, FREE Routine 04/07/2024 10:10 AM PHP SOFTWARE ENGINEER Acquired hypothyroidism DIFFERENTIAL AUTO Routine 04/07/2024 10:10 AM PHP SOFTWARE ENGINEER Essential hypertension CBC WITH AUTO DIFFERENTIAL Routine 04/07/2024 10:10 AM PHP SOFTWARE ENGINEER Essential hypertension COMPREHENSIVE METABOLIC PANEL Routine 04/07/2024 10:10 AM PHP SOFTWARE ENGINEER Type 2 diabetes mellitus with hyperglycemia, with long-term current use of insulin ([facility]) Essential hypertension LIPID PANEL Routine 04/07/2024 10:10 AM PHP SOFTWARE ENGINEER Essential hypertension THYROID FUNCTION CASCADE Routine 04/07/2024 10:10 AM PHP SOFTWARE ENGINEER Acquired hypothyroidism HEMOGLOBIN A1C Routine 04/07/2024 10:10 AM PHP SOFTWARE ENGINEER Type 2 diabetes mellitus with hyperglycemia, with long-term current use of insulin ([facility]) ALBUMIN CREATININE RATIO, URINE Routine 04/06/2024 3:24 PM PHP SOFTWARE ENGINEER Type 2 diabetes mellitus with hyperglycemia, with long-term current use of insulin ([facility]) SCREENING MAMMOGRAM BILATERAL W JERRY Schedule Routine, Read Routine (OP Routine) 01/30/2024 2:10 PM PHP SOFTWARE ENGINEER Screening mammogram, encounter for DEXA AXIAL SKELETON BONE DENSITY 1 OR MORE SITES Schedule Routine, Read Routine (OP Routine) 10/16/2023 7:32 AM CDT Post-menopausal STOOL DNA COLOGUARD Routine 11/03/2021 11:48 AM CDT Screening for colon cancer from Last 3 Months or Most Recently Relevant to Health Maintenance Results * eGFR (04/07/2024 10:10 AM PHP SOFTWARE ENGINEER) Pathologist [facility] eGFR >90 >=60 mL/min/1. 73 m2 Comment: [...] reviewed 2020. Blood 04/07/2024 10:1 0 AM PHP SOFTWARE ENGINEER 04/07/2024 11:06 AM PHP SOFTWARE ENGINEER us Anderson Alvarez MD LAB BLOOD ORDERABLES Final Re sult DM [address] Department [place] [address] * Differential, auto (04/07/2024 10:10 AM PHP SOFTWARE ENGINEER) Neutrophil abs 3.8 1.5 - 6.5 K/cumm Imm gran abs 0.0 0.0 - 0.1 K/cumm [facility] Lymphocyte abs 1.7 0.8 - 3.3 K/cumm [facility] Monocyte abs 0.5 0.2 - 0.8 K/cumm [facility] Eosinophil abs 0.1 0.0 - 0.5 K/cumm [facility] Basophil abs 0.0 0.0 - 0.1 K/cumm [facility] Neutrophil pct 63.1 % [facility] Comment: Interpretive Data Percent cell count reference ranges are not reported, since discordance with absolute values may lead to misinterpretation of CBC data. Current Interpretive Data was last revised on 2017. Imm gran pct 0.2 % [facility] Comment: Interpretive Data Percent cell count reference ranges are not reported, since discordance with absolute values may lead to misinterpretation of CBC data. Current Interpretive Data was last revised on 2017. Lymphocyte pct 27.7 % [facility] Comment: Interpretive Data Percent cell count reference ranges are not reported, since discordance with absolute values may lead to misinterpretation of CBC data. Current Interpretive Data was last revised on 2017. Monocyte pct 7.4 % [facility] Comment: Interpretive Data Percent cell count reference ranges are not reported, since discordance with absolute values may lead to misinterpretation of CBC data. Current Interpretive Data was last revised on 2017. Eosinophil pct 1.3 % [facility] Comment: Interpretive Data Percent cell count reference ranges are not reported, since discordance with absolute values may lead to misinterpretation of CBC data. Current Interpretive Data was last revised on 2017. Basophil pct 0.3 % [facility] Comment: Interpretive Data Percent cell count reference ranges are not reported, since discordance with absolute values may lead to misinterpretation of CBC data. Current Interpretive Data was last revised on 2017. Blood 04/07/2024 10:1 0 AM PHP SOFTWARE ENGINEER 04/07/2024 11:06 AM PHP SOFTWARE ENGINEER Anderson Alvarez MD LAB BLOOD ORDERABLES Final Re sult DM [address] [place] [address] * (ABNORMAL) Thyroid Function [place] (04/07/2024 10:10 AM PHP SOFTWARE ENGINEER) Pathologist [facility] TSH 0.07(L) 0.30 - 4.20 mcIUnit/mL Blood 04/07/2024 10:1 0 AM PHP SOFTWARE ENGINEER 04/07/2024 11:06 AM PHP SOFTWARE ENGINEER us Anderson Alvarez MD LAB BLOOD ORDERABLES Final Re sult Performing Organization Address [facility] Co de Phone Number [address] [place] [address] * CBC with auto differential (04/07/2024 10:10 AM PHP SOFTWARE ENGINEER) [facility] WBC 6.1 3.8 - 9.9 K/cumm Hgb 14.4 11.9 - 15.5 g/dL [facility] Hct 44.3 35.6 - 45.5 % [facility] Plt 321 150 - 400 K/cumm [facility] MPV 11.7 9.1 - 12.3 fL [facility] RBC 4.79 3.90 - 5.20 M/cumm [facility] MCV 92.5 81.3 - 96.4 fL [facility] MCH 30.1 27.1 - 33.3 pg [facility] MCHC 32.5 32.3 - 35.7 g/dL [facility] RDW CV 13.3 11.1 - 14.9 % [facility] RDW SD 44.7 35.7 - 48.1 fL [facility] NRBC abs 0.00 0.00 - 0.01 K/cumm [facility] Blood 04/07/2024 10:1 0 AM PHP SOFTWARE ENGINEER 04/07/2024 11:06 AM PHP SOFTWARE ENGINEER us Anderson Alvarez MD LAB BLOOD ORDERABLES Final Re sult Performing Organization Address [facility] Co de Phone Number [address] [place] [address] * T3, free (04/07/2024 10:10 AM PHP SOFTWARE ENGINEER) [facility] Free T3 2.2 2.0 - 4.4 pg/mL Blood 04/07/2024 10:1 0 AM PHP SOFTWARE ENGINEER 04/07/2024 11:06 AM PHP SOFTWARE ENGINEER Narrative DM - 04/07/2024 1:00 PM PHP SOFTWARE ENGINEER This test was reflexed from a Free T4 result. Anderson Alvarez MD LAB BLOOD ORDERABLES Final Re sult Performing Organization Address [facility] Co de Phone Number [address] [place] [address] * T4, free (04/07/2024 10:10 AM PHP SOFTWARE ENGINEER) [facility] Free T4 1.69 0.90 - 1.70 ng/dL Blood 04/07/2024 10:1 0 AM PHP SOFTWARE ENGINEER 04/07/2024 11:06 AM PHP SOFTWARE ENGINEER Narrative DM - 04/07/2024 12:30 PM PHP SOFTWARE ENGINEER This test was reflexed from a TSH result. Anderson Alvarez MD LAB BLOOD ORDERABLES Final Re sul Performing Organization Address [facility] Co de Phone Number [address] [address] * (ABNORMAL) Hemoglobin A1c (04/07/2024 10:10 AM PHP SOFTWARE ENGINEER) [facility] Hgb A1C 10.5(H) 4.0 - 5.6 % Estimated Average Glucose 255 mg/dL [facility] Comment: The ADA recommends reporting an estimated Average Glucose (eAG) with all Hemoglobin A1c results using the equation derived from a study of 507 normal and diabetic adults. Minority populations were underrepresented and children were not included. (Diabetes Care 31:5732-5499, 2008). The eAG is not equivalent to a fasting glucose. Blood 04/07/2024 10:1 0 AM PHP SOFTWARE ENGINEER 04/07/2024 11:06 AM PHP SOFTWARE ENGINEER us Anderson Alvarez MD LAB BLOOD ORDERABLES Final Re sult DM [address] Department [place] [address] * (ABNORMAL) Lipid panel (04/07/2024 10:10 AM PHP SOFTWARE ENGINEER) Cholesterol 129 30 - 199 mg/dL Comment: [...] DM MERA Blood 04/07/2024 10:1 0 AM PHP SOFTWARE ENGINEER 04/07/2024 11:06 AM PHP SOFTWARE ENGINEER Narrative DM MERA - 04/07/2024 11:53 AM PHP SOFTWARE ENGINEER Has the patient been fasting for 8 hours or more?->Yes us Anderson Alvarez MD LAB BLOOD ORDERABLES Final Re sult DM MERA [address] Department [place] [address] * (ABNORMAL) Comprehensive metabolic panel (04/07/2024 10:10 AM PHP SOFTWARE ENGINEER) Sodium 142 135 - 145 mmol/L Potassium, pl 3.4 3.3 - 4.9 mmol/L [facility] Chloride 107 97 - 110 mmol/L [facility] CO2 25 22 - 32 mmol/L [facility] Anion gap 10 2 - 15 mmol/L [facility] BUN 18 6 - 25 mg/dL [facility] Creatinine 0.57(L) 0.60 - 1.10 mg/dL [facility] Glucose 133 70 - 199 mg/dL [facility] Comment: Interpretive Data Fasting glucose >/= [...] 2022. Calcium 10.7(H) 8.5 - 10.3 mg/dL [facility] Bilirubin, total 0.7 0.1 - 1.2 mg/dL [facility] Protein, pl 6.8 6.5 - 8.5 g/dL [facility] Albumin 4.2 3.5 - 5.0 g/dL [facility] Alk phos 97 40 - 130 Units/L [facility] ALT 30 7 - 45 Units/L [facility] AST 32 10 - 45 Units/L [facility] Blood 04/07/2024 10:1 0 AM PHP SOFTWARE ENGINEER 04/07/2024 11:06 AM PHP SOFTWARE ENGINEER us Anderson Alvarez MD LAB BLOOD ORDERABLES Final Re sult DM [address] Department [place] [address] * (ABNORMAL) Albumin Creatinine Ratio, Urine (04/06/2024 3:24 PM PHP SOFTWARE ENGINEER) Albumin Ur 24.9 mg/L Comment: Interpretive Data No reference range established. Current interpretive data was last revised 2018. Creatinine Ur 56.4 mg/dL DM Comment: Interpretive Data No reference range established. Current interpretive data was last revised 2018. Albumin Creatinine Ratio, Ur 44(H) 1 - 29 mg/g DM Urine 04/06/2024 3:24 PM PHP SOFTWARE ENGINEER 04/06/2024 5:06 PM PHP SOFTWARE ENGINEER us Anderson Alvarez MD LAB URINE ORDERABLES Final Re sult DM [address] Department [place] [address] * Screening Mammogram Bilateral W Jerry (01/30/2024 2:10 PM PHP SOFTWARE ENGINEER) Anatomical Region Laterality Modality Breast Bilateral Mammography Impressions 01/30/2024 3:20 PM PHP SOFTWARE ENGINEER BI-RADS ATLAS category (overall): 1 - Negative There is no mammographic evidence of malignancy. A 1 year screening mammogram is recommended. The patient has been or will be contacted. We recommend annual screening mammography for women at average risk of breast cancer beginning at age 40, based on guidelines of the [employer] (ACR Practice Parameter for the Performance of Screening and Diagnostic Mammography) and [employer]. For women with and elevated risk of breast cancer, please refer to the ACR Practice Parameter for specific screening recommendations. The patient will be entered into a reminder system with a target due date of 1 year for her next screening exam. Narrative 01/30/2024 3:20 PM PHP SOFTWARE ENGINEER Screening Mammogram Bilateral W Jerry: 01/30/24 The [...] with given history of: osteoporosis screen Postmenopausal National Park Tour Guide/Model: Echobit A (S/N [id number]) CLINICAL INFORMATION: Current height: 63 inches Maximum [...] Kaiden Dorantes M.D. MF: ILIA Report ID: [id number] Reading Location: [place] [address] Procedure Note Kaiden Dorantes MD - 10/16/2023 EXAM DESCRIPTION: DEXA AXIAL SKELETON BONE DENSITY 1 OR MORE SITES REASON FOR STUDY: 73 y/o year old F with given history of:osteoporosis screen Postmenopausal [place] Park Tour Guide/Model: Echobit A (S/N [id number]) CLINICAL INFORMATION: Current height: 63 inches Maximum [...] Kaiden Dorantes M.D. MF: ILIA Report ID: [id number] Reading Location: [place] [address] Anderson Alvarez MD [facility] DXA PROCEDURES Final Resu lt * Stool DNA - Cologuard (11/03/2021 11:48 AM CDT) Pathologist [facility] Stool DNA - Cologuard Negative Negative [facility] (CLIA #:[id number]) Comment: NEGATIVE TEST RESULT. A negative Cologuard [...] (Lincoln Álvarez al, N Engl J Med 2014;370(14):1535-2740) The normal value (reference range) for this assay is negative. COLOGUARD RE-SCREENING RECOMMENDATION: Periodic colorectal cancer screening is an important part of preventive healthcare for asymptomatic individuals at average risk for colorectal cancer. Following a negative Cologuard result, the [employer] and U.S. Multi-Society Task Force screening guidelines recommend a Cologuard re-screening interval of 3 years. References: [employer] Guideline for Colorectal Cancer Screening: https://www.cancer.org/cancer/rftio-kbtwfq-lvgmah/vhaoijjsv-jtiqcemax-ifyksqs/ac s-rec ommendations.html.; Prakash DK, Sathya VELASCO, Shavonne GloverK, Colorectal Cancer Screening: Recommendations for Physicians and Patients from the U.S. Multi-Society Task Force on Colorectal Cancer Screening , Am J Gastroenterology 2017; 112:7889-7768. TEST DESCRIPTION: Composite algorithmic analysis of stool [...] screened with both Cologuard and colonoscopy. (Lincoln [place]ri[place], N Engl J Med 2014;370(14):6064-9947.) Cologuard may produce a false negative or false positive result (no colorectal cancer or precancerous polyp present at colonoscopy follow up). A negative Cologuard test result does not guarantee the absence of CRC or advanced adenoma (pre-cancer). The current Cologuard screening interval is every 3 years. ([employer] and U.S. Multi-Society Task Force). Cologuard performance data in a 10,000 patient pivotal study using colonoscopy as the reference method can be accessed at the following location: www.[employer]/results. Additional description of the Cologuard test process, warnings and precautions can be found at [email or web address].[email or web address]. Stool 11/03/2021 11:4 8 AM CDT 11/04/2021 6:26 PM CDT Anderson Alvarez MD LAB BODY FLUIDS AND STOOLS OR DERABLES Final Result [facility] (CLIA #:[id number]) [address] [place] [address] from Last 3 Months or Most Recently Relevant to Health Maintenance Insurance MEDICARE Qapital OOS Qapital OOS MEDICARE Care Teams Bridge Construction Inspector Relationship Specialty Start Date End Date Anderson Alvarez MD [address] [facility] [address] [address] PCP - General Family Medicine 08/30/21
--- OUTSIDE RECORDS SUMMARY | 2024-05-05 16:28 | XMS_ITS | Clinical Summary ---
Author Organization [facility] [employer] Address [address] [place] [address] Care Team Providers Care Channel Director Name Role Phone Darío Badillo MD Primary Care Provider [phone] Source Comments [facility] [employer],non-owned Affiliates and Associated Physician Practices is amultiple site organization consisting of ambulatory clinics and hospital sitesin [place], [place], [place] and [place]. This disclosure is being madepursuant to the Care Everywhere program and may not contain all information available regarding this patient. Last updated 17.[facility] [employer] Allergies Active Allergy Reactions Criticality Noted Date Comments Carvedilol Unknown 04/17/2023 Diphenhydramine Urticaria Medium 07/21/2021 Enalapril Unknown 04/17/2023 Medications * Be aware that medications may not be up to date on this document. Alwaysverify current medications with the patient. Medication Sig Dispensed Refills Start Date End Date Status atorvastatin (Lipitor) 80 MG tablet Take 1 (one) tablet by mouth at bedtime Active cloNIDine (Catapres) 0.1 MG tablet Take 1 (one) tablet by mouth 3 times daily Active losartan (Cozaar) 100 MG tablet Take 1 (one) tablet by mouth once daily Active insulin glargine (Lantus SoloStar) pen Inject 5 (five) Units subcutaneously at bedtime Active insulin lispro (HumaLOG;ADMelog ) 100 UNIT/ML pen Inject 5 (five) Units subcutaneously 3 times daily with meals 07/21/2021 Active metoprolol succinate XL 24hr (Toprol XL) 50 MG tablet Take 1 (one) tablet by mouth once daily Active levothyroxine (Synthroid) 75 MCG tablet Take 1 (one) tablet by mouth once daily Active Cholecalciferol (Vitamin D3) 250 MCG (98070 UT) Take 1 capsule by mouth every Saturday Active aspirin (Aspirin) 81 MG chew tablet Take 1 (one) tablet by mouth once daily Active amLODIPine (Norvasc) 10 MG tablet Take 1 (one) tablet by mouth once daily 12/12/2022 Active Jardiance 25 MG tablet 06/28/2023 Active tolterodine ER 24hr (Detrol LA) 4 MG capsuleIndicatio ns:Urge incontinence,Ralph quency of micturition Take 1 (one) capsule by mouth once daily 90 capsule 3 04/22/2024 Active tolterodine ER 24hr (Detrol LA) 4 MG capsule Take 1 (one) capsule by mouth once daily 30 capsule 2 03/25/2024 Discontinu ed(Reorder ) Active Problems Problem Noted Date Diagnosed Date Hypothyroidism 03/05/2018 Dyspnea on exertion 03/05/2018 Essential hypertension 02/13/2018 Hyperlipidemia 02/13/2018 Shoulder pain 02/13/2018 Fatigue 02/13/2018 Type 2 diabetes mellitus 01/24/2003 Overview (03/09/2024): HgbA1C 9.5 Encounters Date Type Department Care Team Description 04/22/2024 Telephone [facility] - RECORD TABULATING CLERK [address] [facility] [address] [place] [address] Denise Helm Che, MD Update 03/25/2024 11:00 AM FERTILIZER PROCESSING SUPERVISOR Office Visit [facility] - RECORD TABULATING CLERK [address] [facility] [address] [place] [address] Denise Helm Che, MD Urge incontinence (Primary Dx); Frequency of micturition; Nocturia 03/25/2024 Telephone [facility] - RECORD TABULATING CLERK [address] [place] [address] Denise Helm Che, MD Order 03/25/2024 Refill [facility] - RECORD TABULATING CLERK [address], [address] [place] [address] Denise Helm Che, MD Med Change Request 03/25/2024 Travel 03/09/2024 6:09 PM FERTILIZER PROCESSING SUPERVISOR - 03/09/2024 6:10 PM FERTILIZER PROCESSING SUPERVISOR Emergency ER at [facility] [address] [place] [id number] Elevated blood pressure reading Discharge Disposition: Left Against Medical Advice/Discontinued Care 03/09/2024 11:30 AM FERTILIZER PROCESSING SUPERVISOR Office Visit [facility] - RECORD TABULATING CLERK [address] [place] [address] Padilla, Lazaro Garcia MD Well woman exam with routine gynecological exam (Primary Dx); Urge incontinence of urine; Lichen sclerosus of female genitalia 03/09/2024 Travel from Last 3 Months Immunizations Name Administration Dates Next Due INFLUENZA VACCINE, HIGH-DOSE , QUADR. (FLUZONE HIGH-DOSE QUADRIVALENT; 65Y+), 0.7 ML (HD-IIV4) 11/10/2021,12/09/2020 PNEUMOCOCCAL PCV20 CONJ VAC IM 11/10/2021 Family History Medical History Relation Name Comments Diabetes; unknown type Mother Diabetes; unknown type Sister Relation Name Status Comments Mother Sister Social History Tobacco Use Types Packs/Day Years Used Date Smoking Tobacco: Never Smokeless Tobacco: Never Tobacco Cessation:Counseling Given: Not Answered Alcohol Use Standard Drinks/Week Comments Not Currently 0 (1 standard drink = 0.6 oz pur e alcohol) Sex and Gender Information Value Date Recorded Sex Assigned at Not on file Gender Identity Not on file Sexual Orientation Not on file Last Filed Vital Signs Vital Sign Reading Time Taken Comments Blood Pressure 130/74 03/25/2024 10:41 AM FERTILIZER PROCESSING SUPERVISOR Pulse 73 03/09/2024 12:38 PM FERTILIZER PROCESSING SUPERVISOR Temperature 36.7 C (98.1 F) 03/09/2024 12:38 PM FERTILIZER PROCESSING SUPERVISOR Respiratory Rate 18 03/09/2024 12:38 PM FERTILIZER PROCESSING SUPERVISOR Oxygen Saturation 96% 03/09/2024 12:38 PM FERTILIZER PROCESSING SUPERVISOR Inhaled Oxygen Concentration - - Weight 66.4 kg (146 lb 6.4 oz) 03/25/2024 10:41 AM FERTILIZER PROCESSING SUPERVISOR Height 160 cm (5' 3 ) 03/25/2024 10:41 AM FERTILIZER PROCESSING SUPERVISOR Body Mass Index 25.93 03/25/2024 10:41 AM FERTILIZER PROCESSING SUPERVISOR Plan of Treatment Upcoming Encounters Date Type Department Care Team (Late st Contact Info) Description 06/23/2024 10:45 AM CDT Office Visit [facility] - RECORD TABULATING CLERK [address], [address] [place] [phone] Denise Helm Che, MD [address] [place] [address] 03/10/2025 10:50 AM FERTILIZER PROCESSING SUPERVISOR Office Visit [facility] - RECORD TABULATING CLERK [address] [place] [address] Lazaro Padilla MD [address] [place] [address] Health Maintenance Due Date Last Done Comments COLOGUARD (AGES 45-75) - COLON CA SCREENING 1949 COLON MONITORING 1949 COLONOSCOPY - COLON CA SCREENING 1949 CT COLONOGRAPHY - COLON CA SCREENING 1950 Colorectal Cancer Screening 1949 FIT - COLON CA SCREENING 1949 FLEX SIG - COLON CA SCREENING 1949 MEDICARE AWV 12 MONTHS 1949 HEPATITIS C SCREENING 03/13/1967 DTAP/TDAP/TD VACCINES (1 - Tdap) 1968 ZOSTER VACCINE (1 of 2) 1999 COVID-19 VACCINE ( - season) 2023 INFLUENZA VACCINE (#1) 2023 11/10/2021, 2020 DEPRESSION SCREENING 02/26/2024 DIABETES - URINE PROTEIN SCREENING 02/26/2024 DIABETES RETINOPATHY SCREENING 03/09/2024 DIABETES-FOOT EXAM WITH MONOFILAMENT 03/09/2024 DIABETES-HGB A1C 03/09/2024 01/16/2023 Respiratory Syncytial Virus (RSV) Vaccine Pt: or over 60 yrs (1 - 1-dose 75+ series) 2024 DIABETES-SERUM CREATININE 03/09/2025 03/09/2024 MAMMOGRAM 01/29/2026 01/30/2024, 06/2023, 01/07/2023, Additional history exists PNEUMOCOCCAL VACCINE 50+ Completed 11/10/2021 BONE DENSITY TESTING Completed 10/16/2023 HEPATITIS B VACCINE Aged Out No longe r eligible based on patient's age to complete this topic HIB VACCINE Aged Out No longer eligi ble based on patient's age to complete this topic HPV VACCINE Aged Out No longer eligi ble based on patient's age to complete this topic MENINGOCOCCAL (Group B) VACCINE Aged Out No longer eligible based on patient's age to complete this topic MENINGOCOCCAL VACCINE Aged Out No fariba francie eligible based on patient's age to complete this topic Procedures Procedure Name Priority Date/Time Associated Diagnosis Comments CULTURE URINE COMPREHENSIVE Routine 03/25/2024 11:13 AM FERTILIZER PROCESSING SUPERVISOR Urge incontinence Frequency of micturition Nocturia OR INSERT NON-INDWELLING BLADDER Routine 03/25/2024 11:12 AM FERTILIZER PROCESSING SUPERVISOR Urge incontinence Frequency of micturition Nocturia URINALYSIS AUTO - POINT OF CARE (AMB) [facility] Routine 03/25/2024 Urge incontinence Frequency of micturition Nocturia CARDIAC EKG ORDER 03/11/2024 7:2 0 PM FERTILIZER PROCESSING SUPERVISOR TROPONIN-I HIGH SENSITIVE REFLEX 1HOUR Timed 03/09/2024 2:42 PM FERTILIZER PROCESSING SUPERVISOR XR CHEST 2VW STAT 03/09/2024 1:57 PM FERTILIZER PROCESSING SUPERVISOR Elevated blood pressure reading TROPONIN-I HIGH SENSITIVE BASELINE + 1HR STAT 03/09/2024 1:02 PM FERTILIZER PROCESSING SUPERVISOR COMPREHENSIVE METABOLIC PANEL STAT 03/09/2024 1:02 PM FERTILIZER PROCESSING SUPERVISOR CBC W AUTO DIFFERENTIAL STAT 03/09/2024 1:02 PM FERTILIZER PROCESSING SUPERVISOR EKG 12-LEAD STAT 03/09/2024 12:50 PM FERTILIZER PROCESSING SUPERVISOR Elevated blood pressure reading MAMMOGRAM Routine 01/07/2023 from Last 3 Months or Most Recently Relevant to Health Maintenance Results * CULTURE URINE COMPREHENSIVE (03/25/2024 11:13 AM FERTILIZER PROCESSING SUPERVISOR) Culture [facility] Comment: CULTURE, URINE, SPECIAL Micro Number: [id number] Test Status: Final Specimen Source: Urine, catheter Specimen Quality: Adequate Result: No Growth Test Performed at: [facility] [employer] [address] JADE THORNTON MD Microbiology URINE SPECIMEN COLLECTION, CATHETERIZED / Unknown 03/25/2024 11:13 AM FERTILIZER PROCESSING SUPERVISOR 03/26/2024 2:02 AM FERTILIZER PROCESSING SUPERVISOR Denise Helm MD LAB - MICROBIOLOGY O RDERABLES [address] [address] * OR INSERT NON-INDWELLING BLADDER (03/25/2024 11:12 AM FERTILIZER PROCESSING SUPERVISOR) Narrative Denise Helm Che, MD - 03/25/2024 11:12 AM FERTILIZER PROCESSING SUPERVISOR Denise Helm Che, MD 03/25/2024 11:32 AM The patient was prepped with betadine (or with hibiclens or other antiseptic agent if allergic to topical iodine). She understood the rationale for the procedure and agreed to the procedure. A 14F short female catheter was then advanced into the urethra and urine was collected for bedside urinalysis as well as a urine culture and/or formal urinalysis as needed. The post void residual is as noted in the progress note, as are results of the dipstick taken. The patient tolerated the procedure well. Denise Helm MD PROCEDURE/MINOR SURG ICAL ORDERABLES * (ABNORMAL) URINALYSIS AUTO - POINT OF CARE (AMB) [facility] (03/25/2024) Glucose UA +++ OTHER LAB Bilirubin UA POCT neg OTHER LAB Ketones UA POCT neg OTHER LAB Specific [place] UA 1-15 OTHER LAB Blood Urine POCT neg OTHER LAB pH UA 5.0 OTHER LAB Protein UA neg OTHER LAB Urobilinogen UA 0.2 OTHER LAB Nitrite UA neg OTHER LAB WBC UA neg OTHER LAB Urine URINE / Unknown 03/25/2024 Denise Helm MD LAB - POINT OF CARE ORDERABLES OTHER LAB * CARDIAC EKG ORDER (03/11/2024 7:20 PM FERTILIZER PROCESSING SUPERVISOR) Narrative 03/11/2024 7:20 PM FERTILIZER PROCESSING SUPERVISOR Ordered by an unspecified provider. Scanned Document CARDIAC SERVICES ORD ERABLES * TROPONIN-I HIGH SENSITIVE REFLEX 1HOUR (03/09/2024 2:42 PM FERTILIZER PROCESSING SUPERVISOR) Troponin I High Sensitive <3 <=14 ng/L 03/09/2024 3:21 PM FERTILIZER PROCESSING SUPERVISOR [facility] Delta Troponin I HS 03/09/2024 3:21 PM FERTILIZER PROCESSING SUPERVISOR [facility] Comment:Delta value intentio chirag not calculated. Baseline to 1 hour specimen collection interval exceeded. Blood BLOOD SPECIMEN / Unknown Venipuncture / Unknown 03/09/2024 2:42 PM FERTILIZER PROCESSING SUPERVISOR 03/09/2024 2:50 PM FERTILIZER PROCESSING SUPERVISOR Radha ALVAREZ LAB - CHEMISTRY ORDE RABLES [facility] [address] [place] [address] * XR CHEST 2VW (03/09/2024 1:57 PM FERTILIZER PROCESSING SUPERVISOR) Anatomical Region Laterality Modality Chest Radiographic Theresa ging 03/09/2024 1:58 PM FERTILIZER PROCESSING SUPERVISOR Impressions 03/09/2024 1:58 PM FERTILIZER PROCESSING SUPERVISOR IMPRESSION: No active disease. > Interpreting Provider: Mg Ledesma MD on 03/09/2024 1:58 PM Narrative 03/09/2024 1:58 PM FERTILIZER PROCESSING SUPERVISOR Procedure: XR CHEST 2VW Exam Date: 03/09/2024 1:57 PM Location: [facility] Indication: R03.0: Elevated blood-pressure reading, without diagnosis of hypertension Findings: There are no old studies available for comparison. The lungs are clear of infiltrate. There are no pleural effusions or pneumothorax. The heart size and pulmonary vascularity are normal. Procedure Note Mg Ledesma MD - 03/09/2024 Procedure: XR CHEST 2VW Exam Date: 03/09/2024 1:57 PM Location: [facility] Indication: R03.0: Elevated blood-pressure reading, without diagnosis of hypertension Findings: There are no old studies available for comparison. The lungsare clear of infiltrate. There are no pleural effusions or pneumothorax. The heart size and pulmonary vascularity are normal. IMPRESSION: No active disease. > Interpreting Provider: Mg Ledesma MD on 03/09/2024 1:58 PM Radha AL[facility]Z DIAGNOSTIC IMAGING O RDERABLES * TROPONIN-I HIGH SENSITIVE BASELINE + 1HR (03/09/2024 1:02 PM FERTILIZER PROCESSING SUPERVISOR) Pathologist [facility] Troponin I High Sensitive <3 <=14 ng/L 03/09/2024 2:15 PM FERTILIZER PROCESSING SUPERVISOR [facility] Blood BLOOD SPECIMEN / Unknown Venipuncture / Unknown 03/09/2024 1:02 PM FERTILIZER PROCESSING SUPERVISOR 03/09/2024 1:07 PM FERTILIZER PROCESSING SUPERVISOR Radha ALVAREZ LAB - CHEMISTRY KATT HERNANDEZ [facility] Organization Address City/State/ZIP Co de Phone Number [facility] [address] [place] [address] * CBC W AUTO DIFFERENTIAL (03/09/2024 1:02 PM FERTILIZER PROCESSING SUPERVISOR) Pathologist [facility] WBC 6.3 4.0 - 10.7 x10E9/L 03/09/2024 1:10 PM FERTILIZER PROCESSING SUPERVISOR [facility] RBC Count 4.97 3.90 - 5.20 x10E12/L 03/09/2024 1:10 PM FERTILIZER PROCESSING SUPERVISOR [facility] Hemoglobin 15.2 11.9 - 15.8 g/dL 03/09/2024 1:10 PM FERTILIZER PROCESSING SUPERVISOR [facility] Hematocrit 44.6 34.8 - 46.1 % 03/09/2024 1:10 PM FERTILIZER PROCESSING SUPERVISOR [facility] MCV 89.7 80.0 - 98.0 fL 03/09/2024 1:10 PM FERTILIZER PROCESSING SUPERVISOR [facility] MCH 30.6 26.7 - 33.6 pg 03/09/2024 1:10 PM FERTILIZER PROCESSING SUPERVISOR [facility] MCHC 34.1 31.7 - 36.3 g/dL 03/09/2024 1:10 PM [facility] RDW-CV 13.5 11.3 - 14.8 % 03/09/2024 1:10 PM [facility] Platelet Count 303 150 - 420 x10E9/L 03/09/2024 1:10 PM [facility] MPV 11.4 7.8 - 11.4 fL 03/09/2024 1:10 PM [facility] Neutrophil % 70.3 41.0 - 74.0 % 03/09/2024 1:10 PM [facility] Lymphocyte % 23.6 17.0 - 47.0 % 03/09/2024 1:10 PM [facility] Monocyte % 5.1 3.0 - 11.0 % 03/09/2024 1:10 PM [facility] Eosinophil % 0.5 0.0 - 7.0 % 03/09/2024 1:10 PM [facility] Basophil % 0.3 0.0 - 1.6 % 03/09/2024 1:10 PM [facility] Immature Granulocytes % 0.2 0.0 - 1.0 % 03/09/2024 1:10 PM [facility] Neutrophil Absolute 4.40 1.60 - 7.50 x10E9/L 03/09/2024 1:10 PM [facility] Lymphocyte Absolute 1.48 1.00 - 4.40 x10E9/L 03/09/2024 1:10 PM [facility] Monocyte Absolute 0.32 0.15 - 1.00 x10E9/L 03/09/2024 1:10 PM [facility] Eosinophil Absolute 0.03 0.00 - 0.60 x10E9/L 03/09/2024 1:10 PM [facility] Basophil Absolute 0.02 0.00 - 0.13 x10E9/L 03/09/2024 1:10 PM [facility] Blood BLOOD SPECIMEN / Unknown Venipuncture / Unknown 03/09/2024 1:02 PM FERTILIZER PROCESSING SUPERVISOR 03/09/2024 1:07 PM [facility] Radha ALVAREZ LAB - HEMATOLOGY ORD ERABLES [facility] [address] [place] [address] * (ABNORMAL) COMPREHENSIVE METABOLIC PANEL (03/09/2024 1:02 PM [facility]) Glucose 296(H) 70 - 99 mg/dL 03/09/2024 1:25 PM [facility] Sodium 142 136 - 145 mmol/L 03/09/2024 1:25 PM [facility] Potassium 3.6 3.5 - 5.1 mmol/L 03/09/2024 1:25 PM [facility] Chloride 111(H) 98 - 107 mmol/L 03/09/2024 1:25 PM [facility] CO2 20(L) 22 - 29 mmol/L 03/09/2024 1:25 PM [facility] Calcium 10.4 8.4 - 10.4 mg/dL 03/09/2024 1:25 PM [facility] Anion Gap 11 6 - 16 mmol/L 03/09/2024 1:25 PM [facility] BUN 12 7 - 26 mg/dL 03/09/2024 1:25 PM [facility] Creatinine 0.83 0.57 - 1.11 mg/dL 03/09/2024 1:25 PM [facility] Alkaline Phosphatase 96 40 - 150 U/L 03/09/2024 1:25 PM [facility] ALT 27 0 - 55 U/L 03/09/2024 1:25 PM [facility] AST 24 5 - 34 U/L 03/09/2024 1:25 PM [facility] Protein Total 7.8 6.4 - 8.3 gm/dL 03/09/2024 1:25 PM [facility] Albumin 4.3 3.4 - 5.0 gm/dL 03/09/2024 1:25 PM [facility] Bilirubin Total 1.5(H) 0.2 - 1.2 mg/dL 03/09/2024 1:25 PM [facility] eGFR by CKD-EPI 74(L) >=90 mL/min/1.7 3 m2 03/09/2024 1:25 PM [facility] Blood BLOOD SPECIMEN / Unknown Venipuncture / Unknown 03/09/2024 1:02 PM FERTILIZER PROCESSING SUPERVISOR 03/09/2024 1:07 PM FERTILIZER PROCESSING SUPERVISOR Radha ALVAREZ LAB - CHEMISTRY KATT HERNANDEZ [facility] [address] [place] [address] * EKG 12-LEAD (03/09/2024 12:50 PM FERTILIZER PROCESSING SUPERVISOR) Ventricular Rate 61 BPM [facility] Atrial Rate 61 BPM [facility] P-R Interval 148 ms [facility] QRS Duration ms 76 ms [facility] Q-T Interval ms 414 ms [facility] QTC Calculation (Bezet) 416 ms [facility] Calculated P [place] 57 degrees [facility] Calculated R [place] -18 degrees [facility] Calculated T [place] 29 degrees [facility] Interpretation EKG NORMAL SINUS RHYTHM VOLTAGE CRITERIA FOR LEFT VENTRICULAR HYPERTROPHY ( R in aVL , Sokolow-Arguelles , Alfredo product ) NONSPECIFIC ST & T WAVE CHANGES SEPTAL INFARCT , AGE UNDETERMINED ABNORMAL ECG NO PREVIOUS ECGS AVAILABLE Confirmed by DO CARSON STEPHANIE ([id number]) on 03/10/2024 4:53:28 PM [facility] 03/09/2024 12:5 0 PM FERTILIZER PROCESSING SUPERVISOR 03/10/2024 4:53 PM FERTILIZER PROCESSING SUPERVISOR Radha ALVAREZ ECG ORDERABLES Performing Organization Address [facility] Co de Phone Number [facility] * MAMMOGRAM (01/07/2023) Anatomical Region Laterality Modality Other Historical Provider MD SCANNING ONLY from Last 3 Months or Most Recently Relevant to Health Maintenance Care Teams Channel Director Relationship Specialty Start Date End Date Darío Badillo MD [address] [place] [address] PCP - General Internal Medicine 03/09/24
--- OUTSIDE RECORDS SUMMARY | 2024-05-05 16:28 | XMS_ITS | Patient Health Summary ---
Author Organization [facility] Address [address] [place] [address] Care Team Providers Care Green Marketer Name Role Phone Darío Badillo MD Primary Care Provider [phone] Note from [facility],non-owned Affiliates and Associated Physician Practices is amultiple site organization consisting of ambulatory clinics and hospital sitesin [place], [place], [place] and [place]. This disclosure is being madepursuant to the Care Everywhere program and may not contain all information available regarding this patient. Last updated 17.[facility] Allergies * Carvedilol(Unknown) * Diphenhydramine(Urticaria) -Medium Criticality * Enalapril(Unknown) Medications * Be aware that medications may not be up to date on this document. Alwaysverify current medications with the patient. * atorvastatin (Lipitor) 80 MG tablet Take 1 (one) tablet by mouth at bedtime * cloNIDine (Catapres) 0.1 MG tablet Take 1 (one) tablet by mouth 3 times daily * losartan (Cozaar) 100 MG tablet Take 1 (one) tablet by mouth once daily * insulin glargine (Lantus SoloStar) pen Inject 5 (five) Units subcutaneously at bedtime * insulin lispro (HumaLOG;ADMelog) 100 UNIT/ML pen(Started 07/21/2021) Inject 5 (five) Units subcutaneously 3 times daily with meals * metoprolol succinate XL 24hr (Toprol XL) 50 MG tablet Take 1 (one) tablet by mouth once daily * levothyroxine (Synthroid) 75 MCG tablet Take 1 (one) tablet by mouth once daily * Cholecalciferol (Vitamin D3) 250 MCG (86645 UT) Take 1 capsule by mouth every Saturday * aspirin (Aspirin) 81 MG chew tablet Take 1 (one) tablet by mouth once daily * amLODIPine (Norvasc) 10 MG tablet(Started 12/12/2022) Take 1 (one) tablet by mouth once daily * Jardiance 25 MG tablet(Started 06/28/2023) * tolterodine ER 24hr (Detrol LA) 4 MG capsule(Started 04/22/2024) Take 1 (one) capsule by mouth once daily 3 refills by 04/22/2025 Ended Medications* tolterodine ER 24hr (Detrol LA) 4 MG capsule(Started 03/25/2024)(Discontinued) Take 1 (one) capsule by mouth once daily 2 refills by 03/25/2025 Active Problems Problem Noted Date Diagnosed Date Hypothyroidism 03/05/2018 Dyspnea on exertion 03/05/2018 Essential hypertension 02/13/2018 Hyperlipidemia 02/13/2018 Shoulder pain 02/13/2018 Fatigue 02/13/2018 Type 2 diabetes mellitus 01/24/2003 Immunizations * INFLUENZA VACCINE, HIGH-DOSE, QUADR. (FLUZONE HIGH-DOSE QUADRIVALENT; 65Y+), 0.7 ML (HD-IIV4)(Given 11/10/2021, 12/09/2020) * PNEUMOCOCCAL PCV20 CONJ VAC IM(Given 11/10/2021) Social History Tobacco Use Types Packs/Day Years [...] Comments Blood Pressure 130/74 03/25/2024 10:41 AM HEADER SETUP OPERATOR Pulse 73 03/09/2024 12:38 PM HEADER SETUP OPERATOR Temperature 36.7 C (98.1 F) 03/09/2024 12:38 PM HEADER SETUP OPERATOR Respiratory Rate 18 03/09/2024 12:38 PM HEADER SETUP OPERATOR Oxygen Saturation 96% 03/09/2024 12:38 PM HEADER SETUP OPERATOR Inhaled Oxygen Concentration - - Weight 66.4 kg (146 lb 6.4 oz) 03/25/2024 10:41 AM HEADER SETUP OPERATOR Height 160 cm (5' 3 ) 03/25/2024 10:41 AM HEADER SETUP OPERATOR Body Mass Index 25.93 03/25/2024 10:41 AM HEADER SETUP OPERATOR Procedures * CULTURE URINE COMPREHENSIVE(Performed 03/25/2024) Performed for Urge incontinence, Frequency of micturition, Nocturia * NH INSERT NON-INDWELLING BLADDER(Performed 03/25/2024) Performed for Urge incontinence, Frequency of micturition, Nocturia * URINALYSIS AUTO - POINT OF CARE (AMB) SLU(Performed 03/25/2024) Performed for Urge incontinence, Frequency of micturition, Nocturia * CARDIAC EKG ORDER(Performed 03/11/2024) * TROPONIN-I HIGH SENSITIVE REFLEX 1HOUR(Performed 03/09/2024) * XR CHEST 2VW(Performed 03/09/2024) Performed for Elevated blood pressure reading * TROPONIN-I HIGH SENSITIVE BASELINE + 1HR(Performed 03/09/2024) * COMPREHENSIVE METABOLIC PANEL(Performed 03/09/2024) * CBC W AUTO DIFFERENTIAL(Performed 03/09/2024) * EKG 12-LEAD(Performed 03/09/2024) Performed for Elevated blood pressure reading * MAMMOGRAM(Performed 01/07/2023) Results * CULTURE URINE COMPREHENSIVE (03/25/2024 11:13 AM HEADER SETUP OPERATOR) Pathologist [facility] Comment: CULTURE, URINE, SPECIAL Micro Number: [id number] Test Status: Final Specimen Source: Urine, catheter Specimen Quality: Adequate Result: No Growth Test Performed at: [address] [id number] JADE THORNTON MD Microbiology URINE SPECIMEN COLLECTION, CATHETERIZED / Unknown 03/25/2024 11:13 AM HEADER SETUP OPERATOR 03/26/2024 2:02 AM HEADER SETUP OPERATOR Denise Helm MD LAB - MICROBIOLOGY O RDERABLES [address] [address] * NH INSERT NON-INDWELLING BLADDER (03/25/2024 11:12 AM HEADER SETUP OPERATOR) Narrative Denise Helm Che, MD - 03/25/2024 11:12 AM HEADER SETUP OPERATOR Denise Helm Che, MD 03/25/2024 11:32 AM [...] Ketones UA POCT neg OTHER LAB Specific [place] UA 1-15 OTHER LAB Blood Urine POCT neg OTHER LAB pH UA 5.0 OTHER LAB Protein UA neg OTHER LAB Urobilinogen UA 0.2 OTHER LAB Nitrite UA neg OTHER LAB WBC UA neg OTHER LAB Urine URINE / Unknown 03/25/2024 Denise Helm MD LAB - POINT OF CARE ORDERABLES OTHER LAB * CARDIAC EKG ORDER (03/11/2024 7:20 PM HEADER SETUP OPERATOR) Narrative 03/11/2024 7:20 PM HEADER SETUP OPERATOR Ordered by an unspecified provider. Scanned Document CARDIAC SERVICES ORD ERABLES * TROPONIN-I HIGH SENSITIVE REFLEX 1HOUR (03/09/2024 2:42 PM HEADER SETUP OPERATOR) Troponin I High Sensitive <3 <=14 ng/L 03/09/2024 3:21 PM HEADER SETUP OPERATOR [facility] Delta Troponin I HS 03/09/2024 3:21 PM HEADER SETUP OPERATOR [facility] Comment:Delta value intentio chirag not calculated. Baseline to 1 hour specimen collection interval exceeded. Blood BLOOD SPECIMEN / Unknown Venipuncture / Unknown 03/09/2024 2:42 PM HEADER SETUP OPERATOR 03/09/2024 2:50 PM HEADER SETUP OPERATOR Radha ALVAREZ LAB - CHEMISTRY KATT HERNANDEZ [facility] [address] [place] [address] * XR CHEST 2VW (03/09/2024 1:57 PM HEADER SETUP OPERATOR) Anatomical Region Laterality Modality Chest Radiographic Theresa ging 03/09/2024 1:58 PM HEADER SETUP OPERATOR Impressions 03/09/2024 1:58 PM HEADER SETUP OPERATOR IMPRESSION: No active disease. > Interpreting Provider: Mg Ledesma MD on 03/09/2024 1:58 PM Narrative 03/09/2024 1:58 PM HEADER SETUP OPERATOR Procedure: XR CHEST 2VW Exam Date: 03/09/2024 1:57 PM Location: [facility] Indication: R03.0: Elevated blood-pressure reading, without diagnosis of hypertension Findings: There are no old studies available for comparison. The lungs are clear of infiltrate. There are no pleural effusions or pneumothorax. The heart size and pulmonary vascularity are normal. Procedure Note Mg Ledesma MD - 03/09/2024 Procedure: XR CHEST 2VW Exam Date: 03/09/2024 1:57 PM Location: [facility] Indication: R03.0: Elevated blood-pressure reading, without diagnosis [...] SENSITIVE BASELINE + 1HR (03/09/2024 1:02 PM HEADER SETUP OPERATOR) Troponin I High Sensitive <3 <=14 ng/L 03/09/2024 2:15 PM HEADER SETUP OPERATOR [facility] Blood BLOOD SPECIMEN / Unknown Venipuncture / Unknown 03/09/2024 1:02 PM HEADER SETUP OPERATOR 03/09/2024 1:07 PM HEADER SETUP OPERATOR Radha ALVAREZ LAB - CHEMISTRY KATT Rosa Organization Address City/State/ZIP Co de Phone Number [facility] [address] [place] [address] * CBC W AUTO DIFFERENTIAL (03/09/2024 1:02 PM HEADER SETUP OPERATOR) WBC 6.3 4.0 - 10.7 x10E9/L 03/09/2024 1:10 PM [facility] RBC Count 4.97 3.90 - 5.20 x10E12/L 03/09/2024 1:10 PM [facility] Hemoglobin 15.2 11.9 - 15.8 g/dL 03/09/2024 1:10 PM [facility] Hematocrit 44.6 34.8 - 46.1 % 03/09/2024 1:10 PM [facility] MCV 89.7 80.0 - 98.0 fL 03/09/2024 1:10 PM [facility] MCH 30.6 26.7 - 33.6 pg 03/09/2024 1:10 PM [facility] MCHC 34.1 31.7 - 36.3 g/dL 03/09/2024 1:10 PM [facility] RDW-CV 13.5 11.3 - 14.8 % 03/09/2024 1:10 PM [facility] Platelet Count 303 150 - 420 x10E9/L 03/09/2024 1:10 PM [facility] MPV 11.4 7.8 - 11.4 fL 03/09/2024 1:10 PM [facility] Neutrophil % 70.3 41.0 - 74.0 % 03/09/2024 1:10 PM [facility] Lymphocyte % 23.6 17.0 - 47.0 % 03/09/2024 1:10 PM [facility] Monocyte % 5.1 3.0 - 11.0 % 03/09/2024 1:10 PM [facility] Eosinophil % 0.5 0.0 - 7.0 % 03/09/2024 1:10 PM [facility] Basophil % 0.3 0.0 - 1.6 % 03/09/2024 1:10 PM [facility] Immature Granulocytes % 0.2 0.0 - 1.0 % 03/09/2024 1:10 PM [facility] Neutrophil Absolute 4.40 1.60 - 7.50 x10E9/L 03/09/2024 1:10 PM [facility] Lymphocyte Absolute 1.48 1.00 - 4.40 x10E9/L 03/09/2024 1:10 PM [facility] Monocyte Absolute 0.32 0.15 - 1.00 x10E9/L 03/09/2024 1:10 PM [facility] Eosinophil Absolute 0.03 0.00 - 0.60 x10E9/L 03/09/2024 1:10 PM [facility] Basophil Absolute 0.02 0.00 - 0.13 x10E9/L 03/09/2024 1:10 PM [facility] Blood BLOOD SPECIMEN / Unknown Venipuncture / Unknown 03/09/2024 1:02 PM HEADER SETUP OPERATOR 03/09/2024 1:07 PM [facility] Radha ALVAREZ LAB - HEMATOLOGY ORD ERABLES [facility] [address] [id number] * (ABNORMAL) COMPREHENSIVE METABOLIC PANEL (03/09/2024 1:02 PM [facility]) Glucose 296(H) 70 - 99 mg/dL 03/09/2024 1:25 PM [facility] Sodium 142 136 - 145 mmol/L 03/09/2024 1:25 PM [facility] Potassium 3.6 3.5 - 5.1 mmol/L 03/09/2024 1:25 PM [facility] Chloride 111(H) 98 - 107 mmol/L 03/09/2024 1:25 PM [facility] CO2 20(L) 22 - 29 mmol/L 03/09/2024 1:25 PM [facility] Calcium 10.4 8.4 - 10.4 mg/dL 03/09/2024 1:25 PM [facility] Anion Gap 11 6 - 16 mmol/L 03/09/2024 1:25 PM [facility] BUN 12 7 - 26 mg/dL 03/09/2024 1:25 PM HEADER SETUP OPERATOR [facility] Creatinine 0.83 0.57 - 1.11 mg/dL 03/09/2024 1:25 PM HEADER SETUP OPERATOR [facility] Alkaline Phosphatase 96 40 - 150 U/L 03/09/2024 1:25 PM HEADER SETUP OPERATOR [facility] ALT 27 0 - 55 U/L 03/09/2024 1:25 PM HEADER SETUP OPERATOR [facility] AST 24 5 - 34 U/L 03/09/2024 1:25 PM [facility] Protein Total 7.8 6.4 - 8.3 gm/dL 03/09/2024 1:25 PM HEADER SETUP OPERATOR [facility] Albumin 4.3 3.4 - 5.0 gm/dL 03/09/2024 1:25 PM [facility] Bilirubin Total 1.5(H) 0.2 - 1.2 mg/dL 03/09/2024 1:25 PM [facility] eGFR by CKD-EPI 74(L) >=90 mL/min/1.7 3 m2 03/09/2024 1:25 PM [facility] Blood BLOOD SPECIMEN / Unknown Venipuncture / Unknown 03/09/2024 1:02 PM HEADER SETUP OPERATOR 03/09/2024 1:07 PM HEADER SETUP OPERATOR Radha ALVAREZ LAB - CHEMISTRY KATT Rosa Organization Address City/State/ZIP Co de Phone Number [facility] [address] [place] [address] * EKG 12-LEAD (03/09/2024 12:50 PM HEADER SETUP OPERATOR) Ventricular Rate 61 BPM [facility] Atrial Rate 61 BPM [facility] P-R Interval 148 ms [facility] QRS Duration ms 76 ms [facility] Q-T Interval ms 414 ms [facility] QTC Calculation (Bezet) 416 ms [facility] Calculated P Owen 57 degrees [facility] Calculated R Owen -18 degrees [facility] Calculated T Owen 29 degrees [facility] Interpretation EKG NORMAL SINUS RHYTHM VOLTAGE CRITERIA FOR LEFT VENTRICULAR HYPERTROPHY ( R in aVL , Sokolow-Arguelles , Alfredo product ) NONSPECIFIC ST & T WAVE CHANGES SEPTAL INFARCT , AGE UNDETERMINED ABNORMAL ECG NO PREVIOUS ECGS AVAILABLE Confirmed by DO CARSON STEPHANIE ([id number]) on 03/10/2024 4:53:28 PM [facility] 03/09/2024 12:5 0 PM HEADER SETUP OPERATOR 03/10/2024 4:53 PM HEADER SETUP OPERATOR Radha ALVAREZ ECG ORDERABLES [facility] * MAMMOGRAM (01/07/2023) Anatomical Region Laterality Modality Other Historical Provider SCANNING ONLY Care Teams Green Marketer Relationship Specialty Start Date End Date Darío Badillo MD [address] [place] [address] PCP - General Internal Medicine 03/09/24
--- OUTSIDE RECORDS SUMMARY | 2024-05-05 16:28 | XMS_ITS | Clinical Summary ---
Author Organization [facility] Address [address] [place] [id number] Care Team Providers Care Biomedical Specialist Name Role Phone Darío Badillo MD Primary Care Provider [phone] Social History Tobacco Use Types Packs/Day Years Used Date Smoking Tobacco: Never Assessed Comments Unknown Sex and Gender Information Value Date Recorded Sex Assigned at Not on file Legal Sex Female 4:45 PM CDT Gender Identity Not on file Sexual Orientation Not on file Plan of Treatment Health Maintenance Due Date Last Done Comments Colorectal Cancer Screening Colonoscopy (10 Years) 1949 Hepatitis C 1967 DTaP, Tdap and Td Vaccines ( 1 - Tdap) 1968 Mammogram Screening 1989 Zoster Vaccines (1 of 2) 1999 Dexa Scan (General) 2014 Pneumococcal Vaccine: 65+ Ye ars (1 of 1 - PCV) 2014 COVID-19 Vaccine ( - 2023-2 5 season) 2023 Influenza Adult (#1) 2023 RSV Immunization or 60+ Years (1 - 1-dose 75+ series) 2024 Meningococcal B Vaccine Aged Out No l onger eligible based on patient's age to complete this topic Meningococcal Vaccine Aged Out No fariba francie eligible based on patient's age to complete this topic RSV Immunizations Under 20 Months Aged Out No longer eligible based on patient's age to complete this topic Care Teams Biomedical Specialist Relationship Specialty Start Date End Date Darío Badillo MD PCP - General 06/16/13
--- OUTSIDE RECORDS SUMMARY | 2024-05-05 16:28 | XMS_ITS | Referral Summary ---
Author Organization [facility] Address [address] [place] [address] Care Team Providers Care Vp & General Counsel Name Role Phone Darío Badillo MD Primary Care Provider [phone] Source Comments [facility],non-owned Affiliates and Associated Physician Practices is amultiple site organization consisting of ambulatory clinics and hospital sitesin [place], [place], [place] and [place]. This disclosure is being madepursuant to the Care Everywhere program and may not contain all information available regarding this patient. Last updated 17.[facility] Encounters Date Type Department Care Team Description 04/22/2024 Telephone [facility] - QUALITY ASSURANCE CLERK [address], [facility] [address] [place] [address] Denise Helm Che, MD Update 03/25/2024 Telephone [facility] - QUALITY ASSURANCE CLERK [address] [place] [address] Denise Helm Che, MD Order 03/25/2024 Refill [facility] - QUALITY ASSURANCE CLERK [address], [address] [place] [phone] Denise Helm Che, MD Med Change Request 03/25/2024 Travel 03/25/2024 11:00 AM STATUS CONTROLLER Office Visit [facility] - QUALITY ASSURANCE CLERK [address], [address] [place] [phone] Denise Helm Che, MD Urge incontinence (Primary Dx); Frequency of micturition; Nocturia 03/09/2024 6:09 PM STATUS CONTROLLER - 03/09/2024 6:10 PM STATUS CONTROLLER Emergency ER at [facility] [address] [place] [address] Elevated blood pressure reading Discharge Disposition: Left Against Medical Advice/Discontinued Care 03/09/2024 Travel 03/09/2024 11:30 AM STATUS CONTROLLER Office Visit [facility] - QUALITY ASSURANCE CLERK [address] [facility] [address] [place] [address] Randy, Lazaro Garcai MD Well woman exam with routine gynecological exam (Primary Dx); Urge incontinence of urine; Lichen sclerosus of female genitalia from Last 3 Months Allergies Active Allergy [...] daily Active Cholecalciferol (Vitamin D3) 250 MCG (04439 UT) Take 1 capsule by mouth every [...] diabetes mellitus 01/24/2003 Overview (03/09/2024): HgbA1C 9.5 Immunizations Name Administration Dates Next Due INFLUENZA VACCINE, HIGH-DOSE , QUADR. (FLUZONE HIGH-DOSE QUADRIVALENT; 65Y+), 0.7 ML (HD-IIV4) 11/10/2021,12/09/2020 PNEUMOCOCCAL PCV20 CONJ VAC IM 11/10/2021 Social History Tobacco Use Types Packs/Day Years [...] Comments Blood Pressure 130/74 03/25/2024 10:41 AM STATUS CONTROLLER Pulse 73 03/09/2024 12:38 PM STATUS CONTROLLER Temperature 36.7 C (98.1 F) 03/09/2024 12:38 PM STATUS CONTROLLER Respiratory Rate 18 03/09/2024 12:38 PM STATUS CONTROLLER Oxygen Saturation 96% 03/09/2024 12:38 PM STATUS CONTROLLER Inhaled Oxygen Concentration - - Weight 66.4 kg (146 lb 6.4 oz) 03/25/2024 10:41 AM STATUS CONTROLLER Height 160 cm (5' 3 ) 03/25/2024 10:41 AM STATUS CONTROLLER Body Mass Index 25.93 03/25/2024 10:41 AM STATUS CONTROLLER Plan of Treatment Upcoming Encounters Date Type Department Care Team (Late st Contact Info) Description 06/23/2024 10:45 AM CDT Office Visit [facility] - QUALITY ASSURANCE CLERK [address], [address] [place] [phone] Denise Helm Che, MD [address] [place] [address] 03/10/2025 10:50 AM STATUS CONTROLLER Office Visit [facility] - QUALITY ASSURANCE CLERK [address] [place] [address] Lazaro Padilla MD [address] [place] [address] Procedures Procedure Name Priority Date/Time Associated Diagnosis Comments CULTURE URINE COMPREHENSIVE Routine 03/25/2024 11:13 AM STATUS CONTROLLER Urge incontinence Frequency of micturition Nocturia [place] INSERT NON-INDWELLING BLADDER Routine 03/25/2024 11:12 AM STATUS CONTROLLER Urge incontinence Frequency of micturition Nocturia URINALYSIS AUTO - POINT OF CARE (AMB) [facility] Routine 03/25/2024 Urge incontinence Frequency of micturition Nocturia CARDIAC EKG ORDER 03/11/2024 7:2 0 PM STATUS CONTROLLER TROPONIN-I HIGH SENSITIVE REFLEX 1HOUR Timed 03/09/2024 2:42 PM STATUS CONTROLLER XR CHEST 2VW STAT 03/09/2024 1:57 PM STATUS CONTROLLER Elevated blood pressure reading TROPONIN-I HIGH SENSITIVE BASELINE + 1HR STAT 03/09/2024 1:02 PM STATUS CONTROLLER COMPREHENSIVE METABOLIC PANEL STAT 03/09/2024 1:02 PM STATUS CONTROLLER CBC W AUTO DIFFERENTIAL STAT 03/09/2024 1:02 PM STATUS CONTROLLER EKG 12-LEAD STAT 03/09/2024 12:50 PM STATUS CONTROLLER Elevated blood pressure reading MAMMOGRAM Routine 01/07/2023 from Last 3 Months or Most Recently Relevant to Health Maintenance Results * CULTURE URINE COMPREHENSIVE (03/25/2024 11:13 AM STATUS CONTROLLER) Culture [facility] Comment: CULTURE, URINE, SPECIAL Micro Number: [id number] Test Status: Final Specimen Source: Urine, catheter Specimen Quality: Adequate Result: No Growth Test Performed at: [email or web address] [id number] JADE THORNTON MD Microbiology URINE SPECIMEN COLLECTION, CATHETERIZED / Unknown 03/25/2024 11:13 AM STATUS CONTROLLER 03/26/2024 2:02 AM STATUS CONTROLLER Denise Helm MD LAB - MICROBIOLOGY O RDERABLES [address] [address] * [place] INSERT NON-INDWELLING BLADDER (03/25/2024 11:12 AM STATUS CONTROLLER) Narrative Denise Helm Che, MD - 03/25/2024 11:12 AM STATUS CONTROLLER Denise Helm Che, MD 03/25/2024 11:32 AM [...] Ketones UA POCT neg OTHER LAB Specific [place] UA 1-15 OTHER LAB Blood Urine POCT neg OTHER LAB pH UA 5.0 OTHER LAB Protein UA neg OTHER LAB Urobilinogen UA 0.2 OTHER LAB Nitrite UA neg OTHER LAB WBC UA neg OTHER LAB Urine URINE / Unknown 03/25/2024 Denise Helm MD LAB - POINT OF CARE ORDERABLES OTHER LAB * CARDIAC EKG ORDER (03/11/2024 7:20 PM STATUS CONTROLLER) Narrative 03/11/2024 7:20 PM STATUS CONTROLLER Ordered by an unspecified provider. Scanned Document CARDIAC SERVICES ORD ERABLES * TROPONIN-I HIGH SENSITIVE REFLEX 1HOUR (03/09/2024 2:42 PM STATUS CONTROLLER) Troponin I High Sensitive <3 <=14 ng/L 03/09/2024 3:21 PM STATUS CONTROLLER [facility] Delta Troponin I HS 03/09/2024 3:21 PM STATUS CONTROLLER [facility] Comment:Delta value intentio chirag not calculated. Baseline to 1 hour specimen collection interval exceeded. Blood BLOOD SPECIMEN / Unknown Venipuncture / Unknown 03/09/2024 2:42 PM STATUS CONTROLLER 03/09/2024 2:50 PM STATUS CONTROLLER Radha ALVAREZ LAB - CHEMISTRY ORDE MARY [facility] [address] [place] [address] * XR CHEST 2VW (03/09/2024 1:57 PM STATUS CONTROLLER) Anatomical Region Laterality Modality Chest Radiographic Theresa ging 03/09/2024 1:58 PM STATUS CONTROLLER Impressions 03/09/2024 1:58 PM STATUS CONTROLLER IMPRESSION: No active disease. > Interpreting Provider: Mg Ledesma MD on 03/09/2024 1:58 PM Narrative 03/09/2024 1:58 PM STATUS CONTROLLER Procedure: XR CHEST 2VW Exam Date: 03/09/2024 1:57 PM Location: [facility] Indication: R03.0: Elevated blood-pressure reading, without diagnosis of hypertension Findings: There are no old studies available for comparison. The lungs are clear of infiltrate. There are no pleural effusions or pneumothorax. The heart size and pulmonary vascularity are normal. Procedure Note Mg Ledesma MD - 03/09/2024 Procedure: XR CHEST 2VW Exam Date: 03/09/2024 1:57 PM Location: [facility] Indication: R03.0: Elevated blood-pressure reading, without diagnosis of hypertension Findings: There are no old studies available for comparison. The lungsare clear of infiltrate. There are no pleural effusions or pneumothorax. The heart size and pulmonary vascularity are normal. IMPRESSION: No active disease. > Interpreting Provider: Mg Ledesma MD on 03/09/2024 1:58 PM Radah AL[facility]AREZ DIAGNOSTIC IMAGING O RDERABLES * TROPONIN-I HIGH SENSITIVE BASELINE + 1HR (03/09/2024 1:02 PM STATUS CONTROLLER) Pathologist [facility] Troponin I High Sensitive <3 <=14 ng/L 03/09/2024 2:15 PM STATUS CONTROLLER [facility] Blood BLOOD SPECIMEN / Unknown Venipuncture / Unknown 03/09/2024 1:02 PM STATUS CONTROLLER 03/09/2024 1:07 PM STATUS CONTROLLER Radha ALVAREZ LAB - CHEMISTRY KATT HERNANDEZ [facility] Organization Address City/State/ZIP Co de Phone Number [facility] [address] [place] [address] * CBC W AUTO DIFFERENTIAL (03/09/2024 1:02 PM STATUS CONTROLLER) Pathologist [facility] WBC 6.3 4.0 - 10.7 x10E9/L 03/09/2024 1:10 PM STATUS CONTROLLER [facility] RBC Count 4.97 3.90 - 5.20 x10E12/L 03/09/2024 1:10 PM STATUS CONTROLLER [facility] Hemoglobin 15.2 11.9 - 15.8 g/dL 03/09/2024 1:10 PM STATUS CONTROLLER [facility] Hematocrit 44.6 34.8 - 46.1 % 03/09/2024 1:10 PM STATUS CONTROLLER [facility] MCV 89.7 80.0 - 98.0 fL 03/09/2024 1:10 PM [facility] MCH 30.6 26.7 - 33.6 pg 03/09/2024 1:10 PM [facility] MCHC 34.1 31.7 - 36.3 g/dL 03/09/2024 1:10 PM [facility] RDW-CV 13.5 11.3 - 14.8 % 03/09/2024 1:10 PM [facility] Platelet Count 303 150 - 420 x10E9/L 03/09/2024 1:10 PM [facility] MPV 11.4 7.8 - 11.4 fL 03/09/2024 1:10 PM [facility] Neutrophil % 70.3 41.0 - 74.0 % 03/09/2024 1:10 PM [facility] Lymphocyte % 23.6 17.0 - 47.0 % 03/09/2024 1:10 PM [facility] Monocyte % 5.1 3.0 - 11.0 % 03/09/2024 1:10 PM [facility] Eosinophil % 0.5 0.0 - 7.0 % 03/09/2024 1:10 PM [facility] Basophil % 0.3 0.0 - 1.6 % 03/09/2024 1:10 PM [facility] Immature Granulocytes % 0.2 0.0 - 1.0 % 03/09/2024 1:10 PM [facility] Neutrophil Absolute 4.40 1.60 - 7.50 x10E9/L 03/09/2024 1:10 PM [facility] Lymphocyte Absolute 1.48 1.00 - 4.40 x10E9/L 03/09/2024 1:10 PM [facility] Monocyte Absolute 0.32 0.15 - 1.00 x10E9/L 03/09/2024 1:10 PM [facility] Eosinophil Absolute 0.03 0.00 - 0.60 x10E9/L 03/09/2024 1:10 PM [facility] Basophil Absolute 0.02 0.00 - 0.13 x10E9/L 03/09/2024 1:10 PM [facility] Blood BLOOD SPECIMEN / Unknown Venipuncture / Unknown 03/09/2024 1:02 PM STATUS CONTROLLER 03/09/2024 1:07 PM [facility] Radha ALVAREZ LAB - HEMATOLOGY ORD ERABLES [facility] [address] [place] [address] * (ABNORMAL) COMPREHENSIVE METABOLIC PANEL (03/09/2024 1:02 PM [facility]) [facility] Glucose 296(H) 70 - 99 mg/dL 03/09/2024 1:25 PM [facility] Sodium 142 136 - 145 mmol/L 03/09/2024 1:25 PM [facility] Potassium 3.6 3.5 - 5.1 mmol/L 03/09/2024 1:25 PM [facility] Chloride 111(H) 98 - 107 mmol/L 03/09/2024 1:25 PM [facility] CO2 20(L) 22 - 29 mmol/L 03/09/2024 1:25 PM [facility] Calcium 10.4 8.4 - 10.4 mg/dL 03/09/2024 1:25 PM [facility] Anion Gap 11 6 - 16 mmol/L 03/09/2024 1:25 PM [facility] BUN 12 7 - 26 mg/dL 03/09/2024 1:25 PM [facility] Creatinine 0.83 0.57 - 1.11 mg/dL 03/09/2024 1:25 PM [facility] Alkaline Phosphatase 96 40 - 150 U/L 03/09/2024 1:25 PM [facility] ALT 27 0 - 55 U/L 03/09/2024 1:25 PM [facility] AST 24 5 - 34 U/L 03/09/2024 1:25 PM [facility] Protein Total 7.8 6.4 - 8.3 gm/dL 03/09/2024 1:25 PM [facility] Albumin 4.3 3.4 - 5.0 gm/dL 03/09/2024 1:25 PM [facility] Bilirubin Total 1.5(H) 0.2 - 1.2 mg/dL 03/09/2024 1:25 PM [facility] eGFR by CKD-EPI 74(L) >=90 mL/min/1.7 3 m2 03/09/2024 1:25 PM STATUS CONTROLLER [facility] Blood BLOOD SPECIMEN / Unknown Venipuncture / Unknown 03/09/2024 1:02 PM STATUS CONTROLLER 03/09/2024 1:07 PM STATUS CONTROLLER Radha ALVAREZ LAB - CHEMISTRY KATT HERNANDEZ Performing Organization Address City/[facility]/ZIP Co de Phone Number [facility] [address] [place] [address] * EKG 12-LEAD (03/09/2024 12:50 PM STATUS CONTROLLER) [facility] Ventricular Rate 61 BPM [facility] Atrial Rate 61 BPM [facility] P-R Interval 148 ms [facility] QRS Duration ms 76 ms [facility] Q-T Interval ms 414 ms [facility] QTC Calculation (Bezet) 416 ms [facility] Calculated P [place] 57 degrees [facility] Calculated R [place] -18 degrees [facility] Calculated T [place] 29 degrees [facility] Interpretation EKG NORMAL SINUS RHYTHM VOLTAGE CRITERIA FOR LEFT VENTRICULAR HYPERTROPHY ( R in aVL , Sokolow-Arguelles , [place] product ) NONSPECIFIC ST & T WAVE CHANGES SEPTAL INFARCT , AGE UNDETERMINED ABNORMAL ECG NO PREVIOUS ECGS AVAILABLE Confirmed by DO CARSON STEPHANIE ([id number]) on 03/10/2024 4:53:28 PM [facility] 03/09/2024 12:5 0 PM STATUS CONTROLLER 03/10/2024 4:53 PM STATUS CONTROLLER Radha ALVAREZ ECG ORDERABLES Performing Organization Address City/[facility]/ZIP Co de Phone Number [facility] * MAMMOGRAM (01/07/2023) Anatomical Region Laterality Modality Other Historical Provider MD SCANNING ONLY from Last 3 Months or Most Recently Relevant to Health Maintenance Care Teams Vp & General Counsel Relationship Specialty Start Date End Date Darío Badillo MD [address] [place] [address] PCP - General Internal Medicine 03/09/24
== END ==
LOC: ANHLAB 14:33
PROVIDERS: Visit Provider Physician Assistant Surgical
DX: D17.0 Benign lipomatous neoplasm of skin and subcutaneous tissue of head, face and neck (principal)
CPT/HCPCS: 88304